=== PATIENT | female | born 1965 | race Caucasian/White ===

== ENCOUNTER → 2017-06-03 10:20 | Outpatient (CLI) | payer OTHER, SELFPAY ==
[2017-06-03 11:53] LABS: Alanine Aminotransferase 36 U/L (12-78); Albumin Level 3.6 gm/dL (3.4-5.0); Albumin/Globulin Ratio 1.3 (1.1-1.8); Alkaline Phosphatase 91 U/L (46-116); Anion Gap 13.5 mEq/L (5-15); Aspartate Amino Transferase 16 U/L (15-37); Bilirubin,Total 0.2 mg/dL (0.2-1.0); Blood Urea Nitrogen 9 mg/dL (7-18); Calcium 8.3 mg/dL (8.5-10.1); Carbon Dioxide 24 mmol/L (21.0-32.0); Chloride 105 mmol/L (98-107); Creatinine,Serum 0.67 mg/dL (0.55-1.02); Estimated Glomerular Filt Rate 94 ml/min (>60); GFR (African American) 113 ML/MIN (>60); Globulin 2.8 gm/dl (1.3-3.2); Glucose 106 mg/dL (74-106); Potassium 4.5 mmoL/L (3.5-5.1); Sodium 138 mmol/L (136-145); Thyroid Stimulating Hormone 1.83 uIU/ml (0.358-3.740); Total Protein,Serum 6.4 gm/dL (6.4-8.2)
[2017-06-04 19:08] LABS: Vitamin D 25 Hydroxy 37.6 ng/mL (30.0-100.0)
== END ==
PROVIDERS: PCP Nurse Practitioner Family; Visit Provider Nurse Practitioner Family
DX: E03.9 Hypothyroidism, unspecified (principal); E55.9 Vitamin D deficiency, unspecified
CPT/HCPCS: 36415; 80053; 82652; 84443

== ENCOUNTER → 2017-10-28 11:04 | Outpatient (CLI) | payer OTHER, SELFPAY ==
[2017-10-28 11:57] LABS: Hemoglobin A1C 5.6 % (0.0-7.0)
[2017-10-28 12:19] LABS: Basophils # 0.1 K/mm3 (0-0.2); Basophils % 0.8 % (0.1-2.0); Eosinophils # 0.2 K/mm3 (0.0-0.4); Eosinophils % 2.7 % (0.1-12.0); Hematocrit 48.8 % (37.0-47.0); Hemoglobin 15.4 g/dL (12.2-16.2); Lymphocytes # 2.4 K/mm3 (0.7-4.5); Lymphocytes % 31.9 K/mm3 (10-50); Mean Corpuscular HGB Conc 31.5 g/dL (31.8-35.4); Mean Corpuscular Hemoglobin 30.8 pg (27.0-31.2); Mean Corpuscular Volume 97.5 fl (81-99); Mean Platelet Volume 8.1 fl (7.4-10.4); Monocytes # 0.4 K/mm3 (0.1-1.0); Monocytes % 5.8 % (1.7-9.3); Neutrophils # 4.4 K/mm3 (1.8-7.8); Neutrophils % 58.8 % (37.0-80.0); Platelet Count 305 K/mm3 (142-424); White Blood Count 7.5 K/mm3 (4.8-10.8)
[2017-10-28 12:49] LABS: Alanine Aminotransferase 21 U/L (12-78); Albumin Level 3.5 gm/dL (3.4-5.0); Albumin/Globulin Ratio 1.2 (1.1-1.8); Alkaline Phosphatase 92 U/L (46-116); Anion Gap 10.5 mEq/L (5-15); Aspartate Amino Transferase 18 U/L (15-37); Bilirubin,Total 0.3 mg/dL (0.2-1.0); Blood Urea Nitrogen 10 mg/dL (7-18); Calcium 8.5 mg/dL (8.5-10.1); Carbon Dioxide 27 mmol/L (21.0-32.0); Chloride 110 mmol/L (98-107); Chol/HDL Ratio 2.8 (1-3.5); Cholesterol 213 mg/dL (140-200); Creatinine,Serum 0.72 mg/dL (0.55-1.02); Estimated Glomerular Filt Rate 86 ml/min (>60); GFR (African American) 104 ML/MIN (>60); Glucose 109 mg/dL (74-106); HDL Cholesterol 76 mg/dL (29-89); LDL Cholesterol 127 mg/dL (0-130); Potassium 4.5 mmoL/L (3.5-5.1); Sodium 143 mmol/L (136-145); Thyroid Stimulating Hormone 0.17 uIU/ml (0.358-3.740); Total Protein,Serum 6.5 gm/dL (6.4-8.2); Triglycerides 51 mg/dL (30-200); VLDL Cholesterol 10 mg/dL (0-40)
[2017-10-30 01:10] LABS: Vitamin D 25 Hydroxy 48.6 ng/mL (30.0-100.0)
== END ==
PROVIDERS: Visit Provider Nurse Practitioner Family
DX: R07.9 Chest pain, unspecified (principal); R06.09 Other forms of dyspnea; R60.9 Edema, unspecified; R94.31 Abnormal electrocardiogram [ECG] [EKG]; R00.2 Palpitations; I49.1 Atrial premature depolarization; F17.200 Nicotine dependence, unspecified, uncomplicated; Z82.49 Family history of ischemic heart disease and other diseases of the circulatory system
CPT/HCPCS: 36415; 80053; 80061; 82652; 83036; 84443; 85025

== ENCOUNTER → 2017-11-03 06:42 | Outpatient (CLI) | payer OTHER, SELFPAY ==
--- NOTE | 2017-11-03 06:44 | CA_ITS ---
PROCEDURE: 2-D M-mode and color Doppler study INDICATIONS FOR THE TEST: Chest pain X COPDX Heart Murmur Tobacco SmokingX Palpitations Fatigue Syncope EdemaX Hypertension Diabetes Mellitus Rheumatic Fever SOBXDOE Obesity Hyperlipidemia Family History HD Additional History ABN EKG,PACS PATIENT INFORMATION HEIGHT: 63 WEIGHT:173 GENDER: Female B/P:135/79 2-D/M-MODE INTERPRETATION: 2-D MEASUREMENTS OBSERVED VALUES IN CMS Right Ventricular Dimension (RVDd) 2.1 Interventricular Septum (Thickness)(IVsd) .9 Left Ventricular Internal Dimensions(LVIDd) 4.6 Left Ventricular Posterior Wall (Thickness)(LVPWd) 1.0 Aortic Root 2.5 Aortic Cusp Separation 1.6 Left Atrial Dimensions (LAD) 3.0 2D 1. Left atrium is normal size, left ventricle is normal size, there is no concentric left ventricular hypertrophy, visually estimated ejection fraction 55% with no obvious regional wall motion abnormality. 2. The right atrium and right ventricle are normal size and contractility. 3. The aortic, mitral and tricuspid valvular grossly normal. 4. The pulmonic valve is poorly visualized. 5. No significant pericardial effusion noted. DOPPLER INTERROGATION: Doppler interrogation of the aortic, mitral and tricuspid valvular presence of mild mitral and tricuspid regurgitation, tricuspid and enteric velocity insufficient for calculation of the right ventricular systolic pressure, diastolic parameters are within normal range. CONCLUSION: 1. Normal left ventricular size, preserved left ventricular systolic function, visually estimated ejection fraction 55% with no obvious regional wall motion abnormality, diastolic parameters are within normal range. 2. Mild mitral and tricuspid regurgitation 3. No significant pericardial effusion noted.
--- NOTE | 2017-11-03 06:44 | CT_ITS ---
CT chest wo con HISTORY: Chest pain and arm numbness. ITS.REASON: chest pain, dyspnea ORDERING PHYSICIAN: Pradeep Jorgensen MD PATIENT AGE: 52 years COMPARISON: Technique: Axial images obtained. Sagittal and coronal reformatted images are also generated and reviewed. All CT scans at the facility use one or more dose reduction, viz: automated exposure control; ma/kV adjustment per patient size (including targeted exams where dose is matched to indication; i.e. head); or iterative reconstruction technique. FINDINGS: The lungs are well expanded and clear with no active disease. No focal pneumonia. No mass or significant lung lesion. There is a benign calcified granulomata right lower lobe posteriorly axial image 45. Some associated minimal linear scarring. Associated calcified right hilar nodes reflecting old granulomas disease as well. . Airways appear upper normal thickness. Mediastinum. No significant mediastinal mass or adenopathy. Hilar regions with benign calcified right hilar nodes observed. The heart is normal in size. No pericardial effusion. Uppermost abdomen. A generous fluid filled duodenum extends just anterior to the hilum of right kidney. This is seen in 2017. Similar appearance. Upper T-spine with some slight anterior offset of C3 on C4 unchanged 2017. Likely reflect some mild degenerative facet and disc changes. Along with the scoliosis patient with dextroscoliosis mid to lower T-spine and slight levocurvature above this. No significant lesions in the spine.. LUNGS: Unremarkable. No mass or consolidation. Small hiatal hernia less evident this year CT Regarding left arm pain survey of the brachial plexus region shows no obvious mass or lesion nor adenopathy. There are some scattered moderate-sized nodes at the left axilla largest measuring 15 mm in size and nonspecific most likely benign appearance., & Fairly stable since last year. IMPRESSION Lungs clear No active disease in the chest. No significant new findings.. No lung nodule/mass concern. No adenopathy Only Old granulomatous disease right chest . Mild/moderate Scoliosis.Again noted
--- NOTE | 2017-11-03 06:44 | NM_ITS ---
History and Indications: Tobacco use, family history, chest pain, shortness of breath, palpitations fatigue and abnormal EKG Procedure: Patient exercised on Philippe protocol 9 minutes, resting heart rate was 87 bpm, resting blood pressure 126/62, with exercise maximum heart rate achieved was 1 60 bpm which is equal to 94% of the maximum predicted heart rate and a blood pressure was 176/74. Test was started due to shortness of breath patient denied complained of chest pain. Patient has good exercise capacity achieved 10.1mets of workload on treadmill, the blood pressure response to exercise was adequate. Electrocardiogram: Resting electrocardiogram showed sinus rhythm premature atrial complexes, with exercise there is less than 1.[address] segment depression noted from the baseline EKG. The EKG portion of the exercise Myoview is negative for ischemia. Cardiac stress and resting SPECT images: Cardiac stress and rest SPECT images were obtained using technetium 99 Myoview 32.5 mCi at stress and 9.7 mCi at rest. Gated SPECT further analysis of segmental wall motion and calculation of the ejection fraction also done. Cardiac stress and rest images show a mild fixed defect in the anterior wall with normal contractility in the gated SPECT is likely secondary to soft tissue attenuation, no reversible ischemia seen. Computer derived ejection fraction is 52% with no obvious regional wall motion abnormality, right ventricle is normal size and contractility. Conclusion: 1. The EKG portion of the exercise Myoview is negative for ischemia, patient has good exercise capacity achieved 10.1mets of workload on treadmill, the blood pressure response to exercise was adequate, there was no exercise-induced chest discomfort, test was stopped due to shortness of breath. 2. No obvious scintigraphic evidence of reversible ischemia seen, computer derived ejection fraction is 52% with no obvious regional wall motion abnormality, right ventricle is normal size and contractility. 3. Normal exercise Myoview study.
--- NOTE | 2017-11-03 09:37 | HMH.ITSHM ---
synthyroid adderall flonase
== END ==
PROVIDERS: Family Provider Nurse Practitioner Family; PCP Nurse Practitioner Family; Visit Provider Internal Medicine Cardiovascular Disease
DX: R07.9 Chest pain, unspecified (principal); R06.09 Other forms of dyspnea; R94.31 Abnormal electrocardiogram [ECG] [EKG]
CPT/HCPCS: 71250; 78452; 93017; 93306; A9502

== ENCOUNTER → 2017-11-08 16:25 | Outpatient (CLI) | payer OTHER, SELFPAY ==
--- NOTE | 2017-11-08 16:28 | MM_ITS ---
MM Dig screening mamm BI w/CAD CAD Screening COMPARISON: Digital mammograms with CAD 04/14/2016 and additional views left breast 04/27/2016 and 6 month follow-up left mammogram 10/05/2016 INDICATION: There is a history of breast cancer patient's aunt diagnosed after menopause TECHNIQUE: Standard CC and MLO images were obtained. R2 CAD reviewed. FINDINGS: Mild to moderate scattered fibroglandular densities are seen in both breasts. The possible asymmetric density left breast seen originally is not seen on today's study. There is no suspicious lesion and there are no suspicious microcalcifications. IMPRESSION: Moderate breast density with no suspicious lesion seen BI-RADS Category: 1 Negative RECOMMENDED FOLLOW-UP: 1YR - 1 YEAR FOLLOW-UP (A letter has been sent to the patient regarding results of the study.)
== END ==
PROVIDERS: Family Provider Nurse Practitioner Family; PCP Nurse Practitioner Family; Visit Provider Nurse Practitioner Family
DX: Z12.31 Encounter for screening mammogram for malignant neoplasm of breast (principal)
CPT/HCPCS: 77067

== ENCOUNTER → 2017-11-18 12:22 | Outpatient (CLI) | payer OTHER, SELFPAY ==
--- NOTE | 2017-11-18 12:26 | XR_ITS ---
XR foot RT min 3V HISTORY: Right foot pain ITS.REASON: BILAT FOOT PAIN ORDERING PHYSICIAN: Kasey Goncalves PATIENT AGE: 52 years COMPARISON: None FINDINGS: No fracture or dislocation. No lytic or blastic change. There is normal mineralization.. The joint spaces are well-preserved. No significant degenerative/arthritic changes. No erosive changes evident. IMPRESSION: Negative, no acute finding
--- NOTE | 2017-11-18 12:26 | XR_ITS ---
XR foot LT min 3V HISTORY: Left foot pain ITS.REASON: BILAT FOOT PAIN ORDERING PHYSICIAN: Kasey Goncalves PATIENT AGE: 52 years COMPARISON: None FINDINGS: No fracture or dislocation. No lytic or blastic change. There is normal mineralization.. The joint spaces are well-preserved. No significant degenerative/arthritic changes. No erosive changes evident. Small bone island noted in the anterior talus IMPRESSION: Negative, no acute finding
== END ==
PROVIDERS: Visit Provider Nurse Practitioner Family
DX: M79.671 Pain in right foot (principal); M79.672 Pain in left foot
CPT/HCPCS: 73630

== ENCOUNTER → 2018-07-24 10:31 | Outpatient (CLI) | payer OTHER, SELFPAY ==
[2018-07-24 11:17] LABS: Basophils # 0.1 K/mm3 (0-0.2); Basophils % 0.8 % (0.1-2.0); Eosinophils # 0.2 K/mm3 (0.0-0.4); Eosinophils % 2.4 % (0.1-12.0); Hematocrit 42.6 % (37.0-47.0); Hemoglobin 14.7 g/dL (12.2-16.2); Lymphocytes # 2.9 K/mm3 (0.7-4.5); Lymphocytes % 36.7 % (10-50); Mean Corpuscular HGB Conc 34.4 g/dL (31.8-35.4); Mean Corpuscular Hemoglobin 31.7 pg (27.0-31.2); Mean Corpuscular Volume 92.2 fl (81-99); Mean Platelet Volume 7.7 fl (7.4-10.4); Monocytes # 0.4 K/mm3 (0.1-1.0); Monocytes % 4.5 % (1.7-9.3); Neutrophils # 4.4 K/mm3 (1.8-7.8); Neutrophils % 55.7 % (37.0-80.0); Platelet Count 275 K/mm3 (142-424); Red Blood Count 4.62 M/mm3 (4.20-5.40); Red Cell Distribution Width 12.2 % (11.5-17.5); White Blood Count 7.8 K/mm3 (4.8-10.8)
[2018-07-24 12:08] LABS: Alanine Aminotransferase 22 U/L (12-78); Albumin Level 3.6 gm/dL (3.4-5.0); Albumin/Globulin Ratio 1.2 (1.1-1.8); Alkaline Phosphatase 98 U/L (46-116); Anion Gap 17.2 mEq/L (5-15); Aspartate Amino Transferase 14 U/L (15-37); Bilirubin,Total 0.4 mg/dL (0.2-1.0); Blood Urea Nitrogen 13 mg/dL (7-18); Calcium 8.7 mg/dL (8.5-10.1); Carbon Dioxide 24 mmol/L (21.0-32.0); Chloride 103 mmol/L (98-107); Chol/HDL Ratio 3.8 (1-3.5); Cholesterol 263 mg/dL (140-200); Creatinine,Serum 0.76 mg/dL (0.55-1.02); Estimated Glomerular Filt Rate 81 ml/min (>60); Free Thyroxine Index 3.5 ug/dL (5.93-13.13); GFR (African American) 97 ML/MIN (>60); Globulin 3.1 gm/dl (1.3-3.2); Glucose 114 mg/dL (74-106); HDL Cholesterol 70 mg/dL (29-89); LDL Cholesterol 174 mg/dL (0-130); Potassium 4.2 mmoL/L (3.5-5.1); Sodium 140 mmol/L (136-145); T4 (Thyroxine) 10.6 ug/dl (4.7-13.3); Thyroid Stimulating Hormone 0.86 uIU/ml (0.358-3.740); Total Protein,Serum 6.7 gm/dL (6.4-8.2); Triglycerides 93 mg/dL (30-200); Triiodothryronine (T3) Uptake 33 % (31-39); VLDL Cholesterol 19 mg/dL (0-40)
[2018-07-24 12:13] LABS: Hemoglobin A1C 6.1 % (0.0-7.0)
[2018-07-26 14:26] LABS: Vitamin B12 510 pg/mL (232-1245)
[2018-07-26 14:27] LABS: Estradiol 89.9 pg/mL (.); FSH 32.3 mIU/mL (.); LH 18.2 mIU/mL (.); Thyroid Peroxidase Antibodies 16 IU/mL (0-34); Vitamin D 25 Hydroxy 20.2 ng/mL (30.0-100.0)
== END ==
PROVIDERS: Visit Provider Nurse Practitioner Family
DX: R73.9 Hyperglycemia, unspecified (principal); R53.82 Chronic fatigue, unspecified; E55.9 Vitamin D deficiency, unspecified; N91.2 Amenorrhea, unspecified; E03.9 Hypothyroidism, unspecified
CPT/HCPCS: 36415; 80053; 80061; 82607; 82652; 82670; 83001; 83002; 83036; 84436; 84443; 84479; 85025; 86376

== ENCOUNTER → 2018-11-08 11:59 | Outpatient (CLI) | payer OTHER, SELFPAY ==
[2018-11-08 14:11] LABS: Alanine Aminotransferase 21 U/L (12-78); Albumin Level 3.4 gm/dL (3.4-5.0); Albumin/Globulin Ratio 1.1 (1.1-1.8); Alkaline Phosphatase 82 U/L (46-116); Anion Gap 12.7 mEq/L (5-15); Aspartate Amino Transferase 9 U/L (15-37); Bilirubin,Total 0.3 mg/dL (0.2-1.0); Blood Urea Nitrogen 9 mg/dL (7-18); Calcium 9.1 mg/dL (8.5-10.1); Carbon Dioxide 27 mmol/L (21.0-32.0); Chloride 103 mmol/L (98-107); Cholesterol 234 mg/dL (140-200); Creatinine,Serum 0.68 mg/dL (0.55-1.02); Estimated Glomerular Filt Rate 91 ml/min (>60); GFR (African American) 110 ML/MIN (>60); Glucose 100 mg/dL (74-106); HDL Cholesterol 79 mg/dL (29-89); LDL Cholesterol 147 mg/dL (0-130); Potassium 4.7 mmoL/L (3.5-5.1); Sodium 138 mmol/L (136-145); Thyroid Stimulating Hormone 0.55 uIU/ml (0.358-3.740); Total Protein,Serum 6.4 gm/dL (6.4-8.2); Triglycerides 42 mg/dL (30-200); VLDL Cholesterol 8 mg/dL (0-40)
[2018-11-08 15:00] LABS: Hemoglobin A1C 5.6 % (0.0-7.0)
[2018-11-09 08:24] LABS: Vitamin D 25 Hydroxy 31.8 ng/mL (30.0-100.0)
== END ==
PROVIDERS: Visit Provider Nurse Practitioner Family
DX: R73.9 Hyperglycemia, unspecified (principal); E78.2 Mixed hyperlipidemia; E03.9 Hypothyroidism, unspecified; E55.9 Vitamin D deficiency, unspecified
CPT/HCPCS: 36415; 80053; 80061; 82652; 83036; 84443

== ENCOUNTER → 2018-12-29 08:56 | Outpatient (CLI) | payer OTHER, SELFPAY ==
--- NOTE | 2018-12-29 09:02 | MM_ITS ---
PROCEDURE: MM DIG SCREENING MAMM BI W/CAD Patient Age:53Y CLINICAL INDICATION: SCREENING COMPARISON: [facility] DIG MAMM-SCREEN SALLIE from 02/28/2013 [facility] DIG MAMM-SCREEN SALLIE from 10/14/2014 [facility] DIG MAMM-SCREEN SALLIE from 04/14/2016 [facility] DIG MAMM-DX UNI A/VWS-LT W/CAD from 04/27/2016 [facility] DIG MAMM-DX UNI A/VWS-LT W/CAD from 10/07/2016 [facility] MM Dig screening mamm BI w/CAD from 11/08/2017 TECHNIQUE: Standard CC and MLO images were obtained. R2 CAD reviewed. Additional left CC view FINDINGS: [id number] residual fibroglandular elements. No dominant mass. No suspicious calcification. Stable mild asymmetry Right mammogram: Area of asymmetric density superior right breast is similar to previous studies dating back to 2015, 1999 14 no significant new areas of concern. Left breast. Overall adequate stable appearance with no areas significant of concern.. Areas of density towards the lateral breast are similar to studies dating back to 2012, 2013 additional CC nipple profile view included also helpful IMPRESSION: 1.. Stable mammogram with no significant new areas of concern. Bilateral follow-up 1 year is recommended and would be encouraged BI-RAD Category: 2 Benign Finding(s) FOLLOW-UP: 1YR 1 Year Follow-up (A letter has been sent to the patient regarding results of the study.) Dictated by: Osito Lazo MD 01/04/2019 11:38 Electronically signed by Osito Lazo MD in [place] 01/04/2019 11:38
== END ==
PROVIDERS: PCP Internal Medicine Adolescent Medicine; Visit Provider Nurse Practitioner Family
DX: Z12.31 Encounter for screening mammogram for malignant neoplasm of breast (principal)
CPT/HCPCS: 77067

== ENCOUNTER → 2019-04-20 14:45 | Outpatient (CLI) | payer OTHER, SELFPAY ==
[2019-04-20 17:14] LABS: Alanine Aminotransferase 31 U/L (12-78); Albumin Level 3.4 gm/dL (3.4-5.0); Albumin/Globulin Ratio 1.3 (1.1-1.8); Alkaline Phosphatase 101 U/L (46-116); Anion Gap 11.4 mEq/L (5-15); Aspartate Amino Transferase 13 U/L (15-37); Bilirubin,Total 0.3 mg/dL (0.2-1.0); Blood Urea Nitrogen 10 mg/dL (7-18); Calcium 8.7 mg/dL (8.5-10.1); Carbon Dioxide 30 mmol/L (21.0-32.0); Chloride 106 mmol/L (98-107); Chol/HDL Ratio 2.9 (1-3.5); Cholesterol 238 mg/dL (140-200); Creatinine,Serum 0.64 mg/dL (0.55-1.02); Estimated Glomerular Filt Rate 98 ml/min (>60); GFR (African American) 118 ML/MIN (>60); Globulin 2.7 gm/dl (1.3-3.2); Glucose 90 mg/dL (74-106); HDL Cholesterol 82 mg/dL (29-89); LDL Cholesterol 144 mg/dL (0-130); Potassium 4.4 mmoL/L (3.5-5.1); Sodium 143 mmol/L (136-145); Thyroid Stimulating Hormone 0.15 uIU/ml (0.358-3.740); Total Protein,Serum 6.1 gm/dL (6.4-8.2); Triglycerides 61 mg/dL (30-200); VLDL Cholesterol 12 mg/dL (0-40)
== END ==
PROVIDERS: Visit Provider Nurse Practitioner Family
DX: E78.2 Mixed hyperlipidemia (principal); E03.9 Hypothyroidism, unspecified; I10 Essential (primary) hypertension
CPT/HCPCS: 36415; 80053; 80061; 84443

== ENCOUNTER → 2019-08-30 13:28 | Outpatient (CLI) | payer OTHER, SELFPAY ==
[2019-08-30 15:22] LABS: Thyroid Stimulating Hormone 0.02 uIU/mL (0.465-4.68)
== END ==
PROVIDERS: Visit Provider Nurse Practitioner Family
DX: E03.9 Hypothyroidism, unspecified (principal)
CPT/HCPCS: 36415; 84439; 84443

== ENCOUNTER → 2019-12-17 16:13 | Outpatient (CLI) | payer OTHER, SELFPAY ==
[2019-12-17 17:45] LABS: Alanine Aminotransferase 23 U/L (12-78); Albumin Level 4.1 g/dl (3.5-5.0); Albumin/Globulin Ratio 1.6 (1.1-1.8); Alkaline Phosphatase 107 U/L (38-126); Anion Gap 9.6 mEq/L (5-15); Aspartate Amino Transferase 31 U/L (14-36); Bilirubin,Total 0.4 mg/dl (0.2-1.3); Blood Urea Nitrogen 13 mg/dl (7-17); Calcium 9.5 mg/dl (8.4-10.2); Carbon Dioxide 32 mmol/L (22.0-30.0); Chloride 103 mmol/L (98-107); Chol/HDL Ratio 2.9 (1-3.5); Cholesterol 250 mg/dl (140-200); Estimated Glomerular Filt Rate 88 ml/min (>60); GFR (African American) 106 ML/MIN (>60); Globulin 2.6 g/dL (1.3-3.2); Glucose 98 mg/dl (74-100); HDL Cholesterol 85 mg/dl (40-60); Potassium 4.6 mmoL/L (3.5-5.1); Sodium 140 mmol/L (136-145); Total Protein,Serum 6.7 g/dl (6.3-8.2); Triglycerides 64 mg/dl (30-150); VLDL Cholesterol 13 mg/dL (0-40)
[2019-12-17 18:04] LABS: 25-OH Vitamin D, Total 53.1 ng/mL (30-100); Free T4 (Free Thyroxine) 1.21 ng/dl (0.78-2.19)
[2019-12-17 18:18] LABS: Thyroid Stimulating Hormone 2.31 uIU/mL (0.465-4.68)
== END ==
PROVIDERS: Visit Provider Nurse Practitioner Family
DX: E03.9 Hypothyroidism, unspecified (principal); E78.2 Mixed hyperlipidemia; E55.9 Vitamin D deficiency, unspecified
CPT/HCPCS: 36415; 80053; 80061; 82306; 84439; 84443

== ENCOUNTER → 2020-01-15 15:28 | Outpatient (CLI) | payer OTHER, SELFPAY ==
--- NOTE | 2020-01-15 15:32 | MM_ITS ---
PROCEDURE: MM DIG SCREENING MAMM BI W/CAD Digital Breast Tomosynthesis Included CLINICAL INDICATION: SCREENING There is a history of breast cancer in the patient's maternal aunt diagnosed after menopause. COMPARISON: MG [facility] DIG MAMM-DX UNI A/VWS-LT W/CAD from 10/07/2016 MG [facility] MM Dig screening mamm BI w/CAD from 11/08/2017 MG MM DIG SCREENING MAMM BI W/CAD from 12/29/2018 TECHNIQUE: Standard CC and MLO images and 3D Tomosynthesis was obtained. R2 CAD reviewed. FINDINGS: Moderate somewhat heterogenic fibroglandular densities are seen in the central portions of both breasts. There is stable asymmetric glandular elements upper-outer quadrant right breast. There is no new or suspicious lesion in either breast and no suspicious microcalcifications. IMPRESSION: Fibrofatty parenchyma with no suspicious lesions seen BI-RAD Category: 1 Negative FOLLOW-UP: 1YR 1 Year Follow-up (A letter has been sent to the patient regarding results of the study.) Dictated by: Dr. Tremayne Burkett MD 01/21/2020 08:54 Dr. Tremayne Burkett MD in [place] 01/21/2020 08:54
== END ==
PROVIDERS: PCP Nurse Practitioner Family; Visit Provider Nurse Practitioner Family
DX: Z12.31 Encounter for screening mammogram for malignant neoplasm of breast (principal)
CPT/HCPCS: 77063; 77067

== ENCOUNTER 2020-03-17 16:49 | Emergency (ER) | payer OTHER, SELFPAY ==
[2020-03-17 17:05] VITALS: BP 155/80; PULSE 85; RESP 14; TEMP 37.1; O2SAT 97; BMI 28.3
--- NOTE | 2020-03-17 17:45 | HMH.EDUTC ---
[facility] [place] Clinical Impression: Exposure to COVID-19 virus Sinusitis Qualifiers: Sinusitis location: unspecified location Chronicity: acute Recurrence: non-recurrent Qualified Code(s): J01.90 - Acute sinusitis, unspecified Disposition: Home, Self-Care Condition on Discharge: Good Instructions: DI for Sinusitis, Preventing the Spread of Coronavirus Discharge Instructions Additional Instructions: Drink plenty of fluids. Take tylenol or ibuprofen for pain or fever. Take the medications as directed. Follow up with your regular doctor. GO TO THE ER FOR ANY WORSENING SYMPTOMS Prescriptions: Benzonatate [Tessalon Perle 100mg Cap] 100 mg PO TIDP PRN #30 cap PRN Reason: Cough Transmission Status: Received by [facility] Azithromycin [Z-Ludin 250mg Tab*] 250 mg PO UD DOSE PK #6 tab Transmission Status: Re[facility] by [facility] Referrals: Kasey Goncalves APRN [Primary Care Provider] - Time of Disposition: 18:06 Medical Decision Making - Medical Records Medical records reviewed: No: I reviewed the patient's medical records. - Blayne Inquiry Pt receiving controlled substance: No Vital Signs: 03/17/20 17:05 03/17/20 18:24 Temperature 98.7 F 98.7 F Temperature Source Oral Pulse Rate 85 Pulse Rate [Right Brachial] 85 Respiratory Rate 14 14 Blood Pressure 155/80 H Blood Pressure [Left Arm] 155/80 H Blood Pressure Mean [Left Arm] 105 Blood Pressure Source [Left Arm] Automatic Cuff Blood Pressure Position [Left Arm] Sitting 02 Sat by Pulse Oximetry 97 Oxygen Delivery Method Room Air Orders (Tests/Meds): ORDERS Category Date Time Status Covid-19 Nasal PCR Sendout Isaias Routine Lab 03/17/20 17:00 Received [facility] [place] - General Stated complaint: covid exposure Time Seen by Provider: 03/17/20 17:45 Mode of Arrival: Ambulatory Source of Information: Spouse Limitations: No Limitations Description of Symptoms (Recalled from Triage Doc. by RN): PATIENT REQUESTING COVID TEST D/T EXPOSURE; C/O HEADACHE, NASAL DRAINAGE. HAD FLU SHOT LAST WEEK HEENT Symptoms (Recalled from RN notes): Yes Resp Symptoms (Recalled from RN notes): No Skin Symptoms (Recalled from RN notes): No MS Symptoms (Recalled from RN notes): No Functional Status (Recalled from RN notes): WNL - History of Present Illness Provider Complaint: She states that her has covid-19. She has been trying to isolate herself away from him. Since yesterday she has had a scratchy throat, cough, nasal drainage. - Related Data Home Medications Medication Instructions Recorded Confirmed Dextroamphetamine/Amphetamine 20 mg PO DAILY 10/27/17 03/23/19 [Adderall 20 mg Tablet] Multivitamin [Multivitamins] 1 each PO DAILY 10/27/17 03/23/19 fluticasone propionate 50 1 spray INTRANASAL DAILY g 10/28/17 03/23/19 mcg/actuation nasal spray,suspension Omeprazole [Omeprazole 40mg 40 mg PO DAILY 08/29/18 03/23/19 Capsule] Cholecalciferol (Vitamin D3) 2,000 unit PO DAILY 08/30/18 03/23/19 [Vitamin D3] ascorbic acid (vitamin C) 500 mg 1,000 mg PO DAILY cap 09/15/18 03/23/19 capsule aspirin 81 mg tablet,delayed 81 mg PO DAILY 09/15/18 03/23/19 release levothyroxine 150 mcg tablet 137 mcg PO DAILY tab 09/15/18 03/23/19 loratadine 10 mg tablet 10 mg PO DAILY 09/15/18 03/23/19 Previous Rx's Medication Instructions Recorded metoprolol succinate 25 mg 25 mg PO DAILY #30 tab 01/01/19 tablet,extended release 24 hr Azithromycin [Z-Ludin 250mg Tab*] 250 mg PO UD DOSE PK #6 tab 03/17/20 Benzonatate [Tessalon Perle 100mg 100 mg PO TIDP PRN #30 cap 03/17/20 Cap] Allergies Allergy/AdvReac Type Severity Reaction Status Date / Time No Known Drug Allergies Allergy Unknown Verified 03/23/19 09:58 [NKDA] - Worker's Comp Is this a Worker's Comp case?: No H History - Hepatitis A Screen Drug use history?: No High risk sexual behaviors?: No History of sexually transmitted
[2020-03-17 18:24] VITALS: BP 155/80; PULSE 85; RESP 14; TEMP 37.1; O2SAT 97
[2020-03-19 15:39] LABS: Covid-19 Nasal PCR Sendout Lex Not Detected
== END 2020-03-17 18:25 | disposition home or self-care (01) ==
PROVIDERS: Emergency Provider Nurse Practitioner Family; PCP Nurse Practitioner Family
DX: Z20.828 Contact with and (suspected) exposure to other viral communicable diseases (principal); J01.90 Acute sinusitis, unspecified; K21.9 Gastro-esophageal reflux disease without esophagitis; I10 Essential (primary) hypertension; E03.9 Hypothyroidism, unspecified; F17.210 Nicotine dependence, cigarettes, uncomplicated; Z79.899 Other long term (current) drug therapy
CPT/HCPCS: 99201; U0004

== ENCOUNTER → 2020-03-25 12:08 | Outpatient (CLI) | payer OTHER, SELFPAY ==
[2020-03-25 12:45] LABS: Basophils # 0.1 K/mm3 (0-0.2); Basophils % 1.3 % (0.1-2.0); Eosinophils # 0.3 K/mm3 (0.0-0.4); Hematocrit 47.5 % (37.0-47.0); Hemoglobin 15.8 g/dL (12.2-16.2); Lymphocytes # 3.2 K/mm3 (0.7-4.5); Lymphocytes % 36.1 % (10-50); Mean Corpuscular HGB Conc 33.2 g/dL (31.8-35.4); Mean Corpuscular Hemoglobin 32.8 pg (27.0-31.2); Mean Corpuscular Volume 98.8 fl (81-99); Mean Platelet Volume 8.2 fl (7.4-10.4); Monocytes # 0.5 K/mm3 (0.1-1.0); Neutrophils # 4.7 K/mm3 (1.8-7.8); Neutrophils % 53.7 % (37.0-80.0); Platelet Count 321 K/mm3 (142-424); Red Blood Count 4.81 M/mm3 (4.20-5.40); Red Cell Distribution Width 12.6 % (11.5-17.5); White Blood Count 8.8 K/mm3 (4.8-10.8)
[2020-03-25 12:52] LABS: Chloride 103 mmol/L (98-107)
[2020-03-25 12:53] LABS: Sodium 136 mmol/L (136-145)
[2020-03-25 12:55] LABS: Alanine Aminotransferase 24 U/L (12-78); Aspartate Amino Transferase 35 U/L (14-36); Blood Urea Nitrogen 9 mg/dl (7-17); Estimated Glomerular Filt Rate 66 ml/min (>60); GFR (African American) 80 ML/MIN (>60)
[2020-03-25 12:56] LABS: Albumin Level 4.3 g/dl (3.5-5.0); Albumin/Globulin Ratio 1.5 (1.1-1.8); Alkaline Phosphatase 116 U/L (38-126); Bilirubin,Total 0.4 mg/dl (0.2-1.3); Calcium 9.4 mg/dl (8.4-10.2); Carbon Dioxide 28 mmol/L (22.0-30.0); Globulin 2.9 g/dL (1.3-3.2); Glucose 108 mg/dl (74-100); Total Protein,Serum 7.2 g/dl (6.3-8.2)
[2020-03-25 13:30] LABS: Thyroid Stimulating Hormone 1.28 uIU/mL (0.465-4.68)
[2020-03-25 13:56] LABS: Coronavirus 19 IgG Antibody Negative (Negative); Coronavirus 19 IgM Antibody Negative (Negative)
== END ==
PROVIDERS: Visit Provider Nurse Practitioner Family
DX: Z03.818 Encounter for observation for suspected exposure to other biological agents ruled out (principal); E03.9 Hypothyroidism, unspecified
CPT/HCPCS: 36415; 80053; 84439; 84443; 85025; 86328

== ENCOUNTER → 2020-04-03 10:31 | Outpatient (CLI) | payer OTHER, SELFPAY ==
--- NOTE | 2020-04-03 10:35 | CT_ITS ---
PROCEDURE: CT ANGIO CHEST CLINCIAL INDICATION: dyspnea RIGHT LOWER CHEST PAIN, RIGHT ANT RIB AREA, TENDER TO TOUCH SOA COMPARISON: CT CHESTWO CT chest wo con from 11/03/2017 TECHNIQUE: IV Contrast: 70ML Isovue 370 Axial images obtained with sagittal and coronal reformats. All CT scans at the facility use one or more dose reduction, viz: automated exposure control, ma/kV adjustment per patient size (including targeted exams where dose is matched to indication, i.e. head), or iterative reconstruction technique. FINDINGS: HEART AND MEDIASTINAL STRUCTURES: No evidence of aortic aneurysm or dissection. No evidence of pulmonary embolus. LUNGS AND PLEURAL SPACES: There is a stable 4 mm nodule in the right middle lobe. Stable 3 mm nodule right lower lobe. Calcified granulomas are present. No suspicious nodules are evident. BONY STRUCTURES: Mild thoracic scoliosis convex right UPPER ABDOMEN: Unremarkable. ADDITIONAL FINDINGS: No other significant abnormalities. IMPRESSION: 1. No acute finding. No evidence of pulmonary embolus or aortic aneurysm or dissection. 2. Overall stable CT appearance of the chest compared to 11/03/2017 Dictated by: Hamlet Crespo MD 04/04/2020 12:08 Hamlet Crespo MD in [place] 04/04/2020 12:08
== END ==
PROVIDERS: PCP Nurse Practitioner Family; Visit Provider Internal Medicine Cardiovascular Disease
DX: Z20.828 Contact with and (suspected) exposure to other viral communicable diseases (principal); R06.00 Dyspnea, unspecified; I10 Essential (primary) hypertension; J01.90 Acute sinusitis, unspecified; Z72.0 Tobacco use
CPT/HCPCS: 71275; Q9967

== ENCOUNTER → 2020-08-11 13:48 | Outpatient (CLI) | payer OTHER, SELFPAY ==
[2020-08-11 14:51] LABS: Alanine Aminotransferase 24 U/L (12-78); Albumin Level 4.1 g/dl (3.5-5.0); Albumin/Globulin Ratio 1.9 (1.1-1.8); Alkaline Phosphatase 102 U/L (38-126); Anion Gap 8.1 mEq/L (5-15); Aspartate Amino Transferase 29 U/L (14-36); Bilirubin,Total 0.3 mg/dl (0.2-1.3); Blood Urea Nitrogen 11 mg/dl (7-17); Calcium 9.3 mg/dl (8.4-10.2); Carbon Dioxide 30 mmol/L (22.0-30.0); Chloride 105 mmol/L (98-107); Chol/HDL Ratio 3.5 (1-3.5); Cholesterol 239 mg/dl (140-200); Estimated Glomerular Filt Rate 75 ml/min (>60); GFR (African American) 91 ML/MIN (>60); Globulin 2.2 g/dL (1.3-3.2); Glucose 109 mg/dl (74-100); HDL Cholesterol 68 mg/dl (40-60); Potassium 5.1 mmoL/L (3.5-5.1); Sodium 138 mmol/L (136-145); Total Protein,Serum 6.3 g/dl (6.3-8.2); Triglycerides 91 mg/dl (30-150); VLDL Cholesterol 18 mg/dL (0-40)
[2020-08-11 15:03] LABS: Direct LDL Cholesterol 127.62 mg/dL (100-129)
[2020-08-11 15:08] LABS: 25-OH Vitamin D, Total 38.3 ng/mL (30-100)
[2020-08-11 15:22] LABS: Thyroid Stimulating Hormone 1.08 uIU/mL (0.465-4.68)
== END ==
PROVIDERS: Visit Provider Nurse Practitioner Family
DX: E03.9 Hypothyroidism, unspecified (principal); E78.2 Mixed hyperlipidemia; E55.9 Vitamin D deficiency, unspecified
CPT/HCPCS: 36415; 80053; 80061; 82306; 84439; 84443

== ENCOUNTER → 2020-12-01 13:54 | Outpatient (CLI) | payer OTHER, SELFPAY ==
[2020-12-01 14:32] LABS: Hemoglobin A1C 5.6 % (4.0-6.0)
[2020-12-01 16:11] LABS: Alanine Aminotransferase 17 U/L (12-78); Albumin Level 4.2 g/dl (3.5-5.0); Albumin/Globulin Ratio 1.6 (1.1-1.8); Alkaline Phosphatase 103 U/L (38-126); Anion Gap 11.2 mEq/L (5-15); Aspartate Amino Transferase 28 U/L (14-36); Bilirubin,Total 0.4 mg/dl (0.2-1.3); Blood Urea Nitrogen 9 mg/dl (7-17); Calcium 9.4 mg/dl (8.4-10.2); Carbon Dioxide 29 mmol/L (22.0-30.0); Chloride 101 mmol/L (98-107); Estimated Glomerular Filt Rate 88 ml/min (>60); GFR (African American) 106 ML/MIN (>60); Globulin 2.6 g/dL (1.3-3.2); Glucose 96 mg/dl (74-100); Potassium 5.2 mmoL/L (3.5-5.1); Sodium 136 mmol/L (136-145); Total Protein,Serum 6.8 g/dl (6.3-8.2)
[2020-12-01 16:42] LABS: Thyroid Stimulating Hormone 0.15 uIU/mL (0.465-4.68)
== END ==
PROVIDERS: Visit Provider Nurse Practitioner Family
DX: E03.9 Hypothyroidism, unspecified (principal); R73.9 Hyperglycemia, unspecified
CPT/HCPCS: 36415; 80053; 83036; 84443

== ENCOUNTER → 2021-03-09 13:18 | Outpatient (CLI) | payer OTHER, SELFPAY ==
[2021-03-09 16:33] LABS: Chloride 106 mmol/L (98-107); Potassium 4.2 mmoL/L (3.5-5.1); Sodium 139 mmol/L (136-145)
[2021-03-09 16:35] LABS: Alanine Aminotransferase 22 U/L (12-78); Aspartate Amino Transferase 32 U/L (14-36); Blood Urea Nitrogen 4 mg/dl (7-17); Estimated Glomerular Filt Rate 88 ml/min (>60); GFR (African American) 106 ML/MIN (>60)
[2021-03-09 16:36] LABS: Albumin Level 3.9 g/dl (3.5-5.0); Albumin/Globulin Ratio 1.6 (1.1-1.8); Alkaline Phosphatase 98 U/L (38-126); Anion Gap 7.2 mEq/L (5-15); Bilirubin,Total 0.2 mg/dl (0.2-1.3); Calcium 9.2 mg/dl (8.4-10.2); Carbon Dioxide 30 mmol/L (22.0-30.0); Cholesterol 218 mg/dl (140-200); Globulin 2.4 g/dL (1.3-3.2); Glucose 103 mg/dl (74-100); Total Protein,Serum 6.3 g/dl (6.3-8.2); Triglycerides 100 mg/dl (30-150); VLDL Cholesterol 20 mg/dL (0-40)
[2021-03-09 16:37] LABS: HDL Cholesterol 73 mg/dl (40-60)
[2021-03-09 16:49] LABS: Direct LDL Cholesterol 115.49 mg/dL (100-129)
[2021-03-09 16:53] LABS: Free T4 (Free Thyroxine) 1.41 ng/dl (0.78-2.19)
[2021-03-09 17:08] LABS: Thyroid Stimulating Hormone 2.89 uIU/mL (0.465-4.68)
== END ==
PROVIDERS: Visit Provider Nurse Practitioner Family
DX: I10 Essential (primary) hypertension (principal); E03.9 Hypothyroidism, unspecified; E78.2 Mixed hyperlipidemia
CPT/HCPCS: 36415; 80053; 80061; 84439; 84443

== ENCOUNTER → 2021-07-08 15:18 | Outpatient (CLI) | payer OTHER, SELFPAY ==
--- NOTE | 2021-07-08 15:21 | CT_ITS ---
FINAL REPORT CLINICAL HISTORY: PERSONAL HX OF TOBACCO USE COMPARISON: April 03, 2020 FINDINGS: Low-Dose Chest CT CTDI vol (mGy): 2.90 DLP (mGy-cm): 112.81 Axial images were obtained from the lung apex to the mid abdomen by computed tomography. Low-dose protocol was utilized. FINDINGS: CHEST: There is no axillary adenopathy. There is no mediastinal adenopathy. There is a small right hilar lymph nodes. The heart is proper size. There is no pericardial or pleural effusion. Limited images of the upper abdomen are unremarkable. Lung window images demonstrate a calcified granuloma in the right lower lobe. There is a small nodule in the right middle lobe which is stable or slightly less evident than on the previous exam. The pleural based densities noted in the right lower lobe which is less well seen on today's exam. There is a stable small nodules in the periphery of the right lower lobe seen on image 59 series 4. IMPRESSION: Stable small nodules bilaterally. Lung RADS category 2. Recommend 12 month follow-up low-dose chest CT. Reviewed, Interpreted and Dictated by Tono Becker MD Transcribed by Michelle Mir Authenticated by Tono Becker MD on 07/08/2021 05:27:38 PM [facility]
== END ==
PROVIDERS: PCP Nurse Practitioner Family; Visit Provider Nurse Practitioner Family
DX: Z87.891 Personal history of nicotine dependence (principal); Z12.2 Encounter for screening for malignant neoplasm of respiratory organs
CPT/HCPCS: 71271

== ENCOUNTER → 2021-10-14 15:53 | Outpatient (CLI) | payer OTHER, SELFPAY ==
--- NOTE | 2021-10-14 15:55 | MM_ITS ---
PROCEDURE INFORMATION: Exam: MG Bilateral Screening 3D Mammography Exam date and time: 10/14/2021 3:51 PM Age: 55 years old Clinical indication: Screening examination TECHNIQUE: Imaging protocol: Bilateral Screening tomosynthesis and 2D mammography including computer-aided detection (CAD) when performed. COMPARISON: 1. MG MM DIG SCREENING MAMM BI W/CAD 01/15/2020 3:40 PM 2. MG MM DIG SCREENING MAMM BI W/CAD 12/29/2018 9:13 AM FINDINGS: MAMMOGRAPHY: Breast composition: There are scattered areas of fibroglandular density. Mass: 1.5 cm lobulated mass in the posterior third of the left upper outer quadrant. Questionable adjacent 0.7 cm mass Architectural distortion: None. Calcifications: No suspicious calcifications. Asymmetric density: None. Skin thickening: None. Axillary adenopathy: None. IMPRESSION: Patient to be recalled for left breast ultrasound for further evaluation of two left breast masses ASSESSMENT: BI-RADS Category 0: Incomplete- Need Additional Imaging Evaluation and/or Prior Mammograms for Comparison
== END ==
PROVIDERS: PCP Nurse Practitioner Family; Visit Provider Nurse Practitioner Family
DX: Z12.31 Encounter for screening mammogram for malignant neoplasm of breast (principal)
CPT/HCPCS: 77063; 77067

== ENCOUNTER → 2021-10-23 10:12 | Outpatient (CLI) | payer OTHER, SELFPAY ==
--- NOTE | 2021-10-23 10:18 | US_ITS ---
PROCEDURE INFORMATION: Exam: US Left Breast, Complete Exam date and time: 10/23/2021 10:25 AM Age: 56 years old Clinical indication: Patient recalled for further evaluation of 2 left breast masses TECHNIQUE: Imaging protocol: Complete ultrasound of all four quadrants of the Left breast and the retroareolar regions, including ultrasound of the axilla when performed. COMPARISON: BL US BREAST-LT COMPLETE W/AXILLA 10/07/2016 3:15 PM FINDINGS: Breast: Sonographic images of the left breast including the retroareolar region, all 4 quadrants and the axilla demonstrates 2 adjacent irregularly marginated heterogeneous hypoechoic masses. They are noted in the 1 o'clock axis 10 cm from the nipple and correspond to the masses on mammography. They measure 1.2 x 1.0 x 1.2 cm and 0.5 x 0.3 x 0.2 cm. An adjacent incidental 0.3 cm cyst is noted. No architectural distortion or acoustical shadowing. No skin thickening or axillary adenopathy. IMPRESSION: Two suspicious masses in the left upper outer quadrant. Ultrasound-guided core biopsy of both masses is recommended for further evaluation ASSESSMENT: BI-RADS Category 4: Suspicious
== END ==
PROVIDERS: PCP Nurse Practitioner Family; Visit Provider Nurse Practitioner Family
DX: R92.8 Other abnormal and inconclusive findings on diagnostic imaging of breast (principal)
CPT/HCPCS: 76641

== ENCOUNTER → 2021-10-28 08:43 | Outpatient (CLI) | payer OTHER, SELFPAY ==
--- NOTE | 2021-10-28 08:59 | US_ITS ---
FINAL REPORT CLINICAL HISTORY: LT BREAST LOBULATED MASS LUQ FINDINGS: ULTRASOUND-GUIDED LEFT BREAST CORE BIOPSY TECHNIQUE: Limited images were obtained to localize region of interest. The left breast was prepped in a routine sterile fashion and locally anesthetized with 1% lidocaine. Standard written informed consent was obtained. The biopsy needle was positioned within the outer periphery of the lesion. A total of 4 passes were made with a 18 gauge core biopsy needle. A biopsy marker clip was deployed in satisfactory position. Postbiopsy mammogram showed postbiopsy changes with clip in satisfactory position. Procedure was well tolerated . CONCLUSION: 1. Technically successful ultrasound guided core biopsy of left breast lesion as above. 2. Biopsy marker clip deployed Authenticated and [facility]
[2021-10-28 09:57] LABS: Basophils # 0.2 K/mm3 (0-0.2); Basophils % 2.4 % (0.1-2.0); Eosinophils # 0.2 K/mm3 (0.0-0.4); Hematocrit 47.4 % (37.0-47.0); Hemoglobin 15.1 g/dL (12.2-16.2); Lymphocytes # 3.8 K/mm3 (0.7-4.5); Lymphocytes % 39.6 % (10-50); Mean Corpuscular HGB Conc 31.9 g/dL (31.8-35.4); Mean Corpuscular Hemoglobin 32.7 pg (27.0-31.2); Mean Corpuscular Volume 102.7 fl (81-99); Mean Platelet Volume 8.7 fl (7.4-10.4); Monocytes # 0.5 K/mm3 (0.1-1.0); Monocytes % 5.7 % (1.7-9.3); Neutrophils # 4.8 K/mm3 (1.8-7.8); Neutrophils % 50.3 % (37.0-80.0); Platelet Count 375 K/mm3 (142-424); Red Blood Count 4.61 M/mm3 (4.20-5.40); Red Cell Distribution Width 12.6 % (11.5-17.5); White Blood Count 9.5 K/mm3 (4.8-10.8)
[2021-10-28 10:09] LABS: Alanine Aminotransferase 21 U/L (12-78); Albumin/Globulin Ratio 1.5 (1.1-1.8); Alkaline Phosphatase 107 U/L (38-126); Anion Gap 11.6 mEq/L (5-15); Aspartate Amino Transferase 31 U/L (14-36); Blood Urea Nitrogen 10 mg/dl (7-17); Carbon Dioxide 31 mmol/L (22.0-30.0); Chloride 103 mmol/L (98-107); Chol/HDL Ratio 3.8 (1-3.5); Cholesterol 252 mg/dl (140-200); Estimated Glomerular Filt Rate 75 ml/min (>60); GFR (African American) 90 ML/MIN (>60); Globulin 2.6 g/dL (1.3-3.2); Glucose 108 mg/dl (74-100); HDL Cholesterol 66 mg/dl (40-60); Potassium 4.6 mmoL/L (3.5-5.1); Sodium 141 mmol/L (136-145); Total Protein,Serum 6.6 g/dl (6.3-8.2); Triglycerides 130 mg/dl (30-150); VLDL Cholesterol 26 mg/dL (0-40)
[2021-10-28 10:21] LABS: Direct LDL Cholesterol 143.64 mg/dL (100-129)
[2021-10-28 10:25] LABS: Bilirubin,Total < 0.1 mg/dl (0.2-1.3)
[2021-10-28 10:40] LABS: Thyroid Stimulating Hormone 3.95 uIU/mL (0.465-4.68)
--- NOTE | 2021-10-28 11:16 | MM_ITS ---
FINAL REPORT CLINICAL HISTORY: clip placement FINDINGS: MAMMOGRAM LEFT TECHNIQUE: Standard digital 2-D views COMPARISON: None DENSITY: There are scattered areas of fibroglandular density FINDINGS: Post biopsy marker clip is noted to be in satisfactory position within the posterior portion of the nodule.. Postbiopsy changes are noted. IMPRESSION: Biopsy marker clip in good position RECOMMENDATION: Pending histopathology evaluation. If histopathology is benign, six-month sonographic and mammographic follow-up recommended. Authenticated and [facility]
== END ==
PROVIDERS: PCP Nurse Practitioner Family; Visit Provider Nurse Practitioner Family
DX: R92.8 Other abnormal and inconclusive findings on diagnostic imaging of breast (principal); I10 Essential (primary) hypertension; E78.2 Mixed hyperlipidemia; E03.9 Hypothyroidism, unspecified
CPT/HCPCS: 19083; 36415; 76942; 77065; 80053; 80061; 84443; 85025

== ENCOUNTER → 2022-01-14 09:42 | Outpatient (CLI) | payer OTHER, SELFPAY ==
--- NOTE | 2022-01-14 09:46 | NM_ITS ---
FINAL REPORT CLINICAL HISTORY: MALIGNANT NEOPLASM OF LOWER QUADRANT OF LEFT BREAST 10:00 am 24.7 mci tc MDP injected into lt ant FINDINGS: EXISTING RELEVANT IMAGING STUDIES: TECHNIQUE: The patient was injected with 24.7 mCi of technetium 99-MDP. 3 hour delayed images were obtained. FINDINGS: No other abnormal tracer activity is identified to suggest occult fracture or metastatic disease. IMPRESSION: No findings to indicate metastatic bone disease. Reviewed, Interpreted and Dictated by Mathew Rey MD Transcribed by Carlos Bains Authenticated and [facility]
== END ==
PROVIDERS: PCP Nurse Practitioner Family; Visit Provider Internal Medicine
DX: C50.512 Malignant neoplasm of lower-outer quadrant of left female breast (principal); Z17.1 Estrogen receptor negative status [ER-]
CPT/HCPCS: 78306; A9503

== ENCOUNTER → 2022-01-15 08:59 | Outpatient (CLI) | payer OTHER, SELFPAY ==
--- NOTE | 2022-01-15 09:02 | CT_ITS ---
FINAL REPORT TECHNIQUE: Oral and IV contrast enhanced exam. This study was performed with techniques to keep radiation doses as low as reasonably achievable (ALARA). Individualized dose reduction techniques using automated exposure control or adjustment of mA and/or kV according to the patient's size were employed. CLINICAL HISTORY: breast cancer FINDINGS: Abdomen: Liver has an unremarkable CT appearance. Gallbladder is unremarkable. The spleen, pancreas and adrenal glands are unremarkable. Kidneys show no mass or obstruction. Moderate fecal impaction. No bowel obstruction or fluid collection is seen. Pelvis: The appendix is normal. Pelvic bowel loops are unremarkable. No fluid collection or adenopathy is seen. Uterus is unremarkable. Osseous structures are unremarkable. IMPRESSION: No evidence of metastatic bone disease. Reviewed, Interpreted and Dictated by Mathew Rey MD Transcribed by Carlos Bains Authenticated and [facility]
--- NOTE | 2022-01-15 09:02 | CT_ITS ---
FINAL REPORT TECHNIQUE: Axial CT with contrast with reconstruction. This study was performed with techniques to keep radiation doses as low as reasonably achievable (ALARA). Individualized dose reduction techniques using automated exposure control or adjustment of mA and/or kV according to the patient's size were employed. CLINICAL HISTORY: MALIGANT NEOPLASM OF LOWER QUAD. breast cancer COMPARISON: July 08, 2021 FINDINGS: Thoracic aorta shows no dissection or aneurysm. Small sub cm right middle lobe and right lower lobe nodules are stable. Tiny nodule along the left major fissure in the left lower lobe was less apparent on the prior exam but likely benign.. There is no significant pleural effusion. There is no significant pericardial effusion. Mild bilateral axillary adenopathy. Right axillary lymph node measures 2.2 x 0.9 cm and previously measured 1.3 x 0.5 cm. Left axillary lymph node measures 2.1 x 0.9 cm and previously measured 1.1 x 0.5 cm. Interval development of a presumed postoperative hematoma in the left breast measures 8.9 x 5.7 cm. IMPRESSION: Stable nonspecific tiny lung nodules, favor benign. Mild nonspecific bilateral axillary adenopathy, new. Left breast mass presumably a postoperative hematoma. Reviewed, Interpreted and Dictated by Mathew Rey MD Transcribed by Carlos Bains Authenticated and [facility]
[2022-01-15 09:42] LABS: Blood Urea Nitrogen 11 mg/dl (7-17); Estimated Glomerular Filt Rate 65 ml/min (>60); GFR (African American) 79 ML/MIN (>60)
== END ==
PROVIDERS: PCP Nurse Practitioner Family; Visit Provider Internal Medicine
DX: C50.512 Malignant neoplasm of lower-outer quadrant of left female breast (principal); Z17.1 Estrogen receptor negative status [ER-]
CPT/HCPCS: 36415; 71260; 74177; 82565; 84520; Q9967

== ENCOUNTER → 2022-09-23 17:12 | Outpatient (CLI) | payer OTHER, SELFPAY ==
[2022-09-23 17:43] LABS: Basophils % 0.6 % (0.1-2.0); Eosinophils # 0.1 K/mm3 (0.0-0.4); Hematocrit 43.3 % (37.0-47.0); Lymphocytes # 1.9 K/mm3 (0.7-4.5); Lymphocytes % 35.2 % (10-50); Mean Corpuscular HGB Conc 32.3 g/dL (31.8-35.4); Mean Corpuscular Hemoglobin 31.4 pg (27.0-31.2); Mean Corpuscular Volume 97.1 fl (81-99); Mean Platelet Volume 7.3 fl (7.4-10.4); Monocytes # 0.3 K/mm3 (0.1-1.0); Monocytes % 5.9 % (1.7-9.3); Neutrophils # 3.1 K/mm3 (1.8-7.8); Neutrophils % 56.2 % (37.0-80.0); Platelet Count 309 K/mm3 (142-424); Red Blood Count 4.46 M/mm3 (4.20-5.40); Red Cell Distribution Width 12.6 % (11.5-17.5); White Blood Count 5.4 K/mm3 (4.8-10.8)
[2022-09-23 18:14] LABS: Alanine Aminotransferase 28 U/L (12-78); Albumin Level 4.1 g/dl (3.5-5.0); Albumin/Globulin Ratio 1.6 (1.1-1.8); Alkaline Phosphatase 132 U/L (38-126); Anion Gap 13.2 mEq/L (5-15); Aspartate Amino Transferase 32 U/L (14-36); Bilirubin,Total 0.4 mg/dl (0.2-1.3); Blood Urea Nitrogen 11 mg/dl (7-17); Carbon Dioxide 25 mmol/L (22.0-30.0); Chloride 102 mmol/L (98-107); Chol/HDL Ratio 3.1 (1-3.5); Cholesterol 276 mg/dl (140-200); Estimated Glomerular Filt Rate 75 ml/min (>60); GFR (African American) 90 ML/MIN (>60); Globulin 2.5 g/dL (1.3-3.2); Glucose 114 mg/dl (74-100); HDL Cholesterol 88 mg/dl (40-60); Potassium 4.2 mmoL/L (3.5-5.1); Sodium 136 mmol/L (136-145); Total Protein,Serum 6.6 g/dl (6.3-8.2); Triglycerides 99 mg/dl (30-150); VLDL Cholesterol 20 mg/dL (0-40)
[2022-09-23 18:25] LABS: Direct LDL Cholesterol 139.46 mg/dL (100-129)
[2022-09-23 18:31] LABS: 25-OH Vitamin D, Total 59.6 ng/mL (30-100)
[2022-09-23 18:44] LABS: Thyroid Stimulating Hormone 0.21 uIU/mL (0.465-4.68)
== END ==
PROVIDERS: PCP Nurse Practitioner Family; Visit Provider Nurse Practitioner Family
DX: E03.9 Hypothyroidism, unspecified (principal); I10 Essential (primary) hypertension; E78.2 Mixed hyperlipidemia; E55.9 Vitamin D deficiency, unspecified
CPT/HCPCS: 36415; 80053; 80061; 82306; 84443; 85025

== ENCOUNTER → 2023-01-26 13:58 | Outpatient (CLI) | payer OTHER, SELFPAY ==
--- NOTE | 2023-01-26 14:03 | CT_ITS ---
FINAL REPORT TECHNIQUE: Axial CT images of the chest were obtained without contrast. Low-dose protocol was utilized. This study was performed with techniques to keep radiation doses as low as reasonably achievable (ALARA). Individualized dose reduction techniques using automated exposure control or adjustment of mA and/or kV according to the patient's size were employed. CLINICAL HISTORY: TOBACCO USE x 1.5 ppd x 40 yrs early COPD hx of histoplasmosis hx breast cancer october 2021 father lung cancer grandfather lung cancer COMPARISON: CT low-dose 07/08/[address] chest with contrast 01/15/2022 FINDINGS: CT CHEST WITHOUT, LOW DOSE SCREENING CT Di Vol: 2.90 mGy DLP: 110.46 mGy*cm There are several borderline size mediastinal nodes. There has been interval improvement in right axillary adenopathy compared to most recent CT scan. The heart size is normal. There is no pleural or pericardial effusion. The lung windows show a stable 4 mm right middle lobe nodule seen on image 56. There are several less than 5 mm lateral right lower lobe nodules which are also stable. No new mass or nodule identified. There are multiple calcified granulomas. There has been interval improvement in the lateral left breast mass, presumed hematoma. Limited images of the upper abdomen demonstrate no acute findings.. IMPRESSION: Stable lung nodules. LR Category 2: 12 month follow-up low-dose chest CT is recommended. Improved presumed hematoma lateral left breast. Improved right axillary adenopathy. Reviewed, Interpreted and Dictated by Blaine Benoit III, MD Transcribed by Yolis Sol Authenticated and [facility]
== END ==
PROVIDERS: PCP Nurse Practitioner Family; Visit Provider Nurse Practitioner Family
DX: Z72.0 Tobacco use (principal)
CPT/HCPCS: 71271

== ENCOUNTER → 2023-02-16 13:04 | Outpatient (CLI) | payer OTHER, SELFPAY ==
--- NOTE | 2023-02-16 13:06 | CA_ITS ---
APPROVED REPORT EXAM: Comprehensive 2D, Doppler, and color-flow Echocardiogram Orchid Superintendent: Dilia Mckeon, SHANNON, RVS Ht: 5 ft 3 in Wt: 180lbs BSA: 1.85 BP: 155/80 mmHg Indications: SOB, Hx- radiation with breast Cancer, HTN, COPD, Smoker, CP, Palpitations, GERD 2D Dimensions Aortic Root 3.01 cm LA Volume 34.70 mL Left Atrium 2.11 cm LA Volume Index 18.174023 mL/m2 (M/F) 16-34 LVOT 2.11 cm (M/F) 1.5-2.5 M-Mode Dimensions RVDd 2.25 cm (0.9-2.6) LA Diam 2.86 cm (1.9-4.0) LVDd 4.27 cm (3.5-5.7) Ao Diam 3.03 cm (2.0-3.7) LVDs 2.22 cm (3.5-5.7) IVSd 0.98 cm (0.6-1.1) PWd 0.94 cm (0.6-1.1) EF (Teich) 79.70% EPSs 0.44 cm FS 48.00% EDV (Teich) 81.70 mL TAPSE 2.02 (<1.7) ESV (Teich) 16.60 mL LV Diastology E Decel Time 190.00 (160-240 msec) E/A Ratio 0.89 MED E' 6.40 (< 7 cm/sec) MED A' 8.10 cm/s E'/MED E' Ratio 11.66 (>14) LAT E' 8.50 (<10 cm/sec) LAT A' 8.20 cm/s E/LAT E' Ratio 8.78 (>14) Aortic Valve LVOT Max 95.00 (70-110 cm/s) LVOT VTI 20.02 cm AoV Peak Gurwinder. 121.00 (50-130 cm/s) AO Peak GR. 5.90 mmHg AO Mean GR. 3.00 (<5 mmHg) AO VTI 24.06 (18-25 cm) NIVIA (VTI) 2.91 (2.5-4.5 cm2) Mitral Valve MV A Velocity 84.00 (40-130 cm/s) E/A Ratio 0.89 MV Decel. Time 190.00 (160-240 ms) Tricuspid Valve TR P. Velocity 181.00 cm/s Left Ventricle The left ventricle is normal size. The left ventricular systolic function is normal. The left ventricular ejection fraction is within the normal range. There is normal left ventricular wall thickness. There is normal LV segmental wall motion. The left ventricular diastolic function is normal. LVEF is 55%. Right Ventricle The right ventricle is normal size. The right ventricular systolic function is normal. There is increased RV wall thickness. Atria The left atrium size is normal. The right atrium size is normal. There is no Doppler evidence of interatrial shunt. Aortic Valve The aortic valve opens well. There is no aortic valvular stenosis. Trace aortic regurgitation. Mitral Valve The mitral valve is normal in structure. No evidence of mitral valve stenosis. Trace mitral regurgitation. Tricuspid Valve The tricuspid valve leaflets are thin and pliable. Trace tricuspid regurgitation. There is insufficient TR jet to estimate RVSP. Pulmonic Valve The pulmonary valve is normal in structure. Trace pulmonic regurgitation. Great Vessels The aortic root is normal in size. The ascending aorta is normal in size. IVC is normal in size and collapses >50% with inspiration. Pericardium Trivial pericardial effusion. Other Information Study Quality: Fair Conclusion Normal biventricular systolic function. No significant valvular stenosis or regurgitation. Trivial pericardial effusion. Electronically signed by : Agata Shine MD 02/18/2023 22:11:05
[2023-02-16 15:42] LABS: Free T4 (Free Thyroxine) 1.49 ng/dl (0.78-2.19)
[2023-02-16 15:56] LABS: Thyroid Stimulating Hormone 1.04 uIU/mL (0.465-4.68)
== END ==
PROVIDERS: PCP Nurse Practitioner Family; Visit Provider Nurse Practitioner Family
DX: R06.09 Other forms of dyspnea (principal); E03.9 Hypothyroidism, unspecified
CPT/HCPCS: 36415; 84439; 84443; 93306

== ENCOUNTER 2023-06-06 08:58 | Outpatient (CLI) | payer OTHER, SELFPAY ==
--- NOTE | 2023-06-06 09:03 | NM_ITS ---
FINAL REPORT CLINICAL HISTORY: BREAST CANCER, rt sided pain above the hip 9:20am 25.5 mci tc mdp COMPARISON: None FINDINGS: EXISTING RELEVANT IMAGING STUDIES: None TECHNIQUE: The patient was injected with 25.5 mCi of technetium 99-MDP. 3 hour delayed images were obtained. FINDINGS: No abnormal tracer activity is identified to suggest occult fracture or metastatic disease. IMPRESSION: No findings to indicate metastatic bone disease. Reviewed, Interpreted and Dictated by Tono Becker MD Transcribed by Marie Thomas Authenticated and [facility]
[2023-06-06] MEDS: SODIUM CHLORIDE 0.9% 10ML SYR (RAD ONLY) 10 ML IV (09:35)
[2023-06-06] MEDS: ISOTOPE MDP (BONE);1 DOSE VIAL IV (09:35)
== END 2023-06-06 23:59 ==
PROVIDERS: PCP Nurse Practitioner Family; Visit Provider Internal Medicine
DX: C50.512 Malignant neoplasm of lower-outer quadrant of left female breast (principal); Z17.1 Estrogen receptor negative status [ER-]
CPT/HCPCS: 78306; A9503

== ENCOUNTER 2024-02-16 10:56 | Day surgery (SDC) | payer OTHER, SELFPAY ==
[2024-02-10 14:04] VITALS: BMI 30.4
[2024-02-16] VITALS (8 sets, daily range): BP systolic 104–140; BP diastolic 60–85; PULSE 64–87; RESP 16–18; TEMP 36.2–36.6; O2SAT 93–99
[2024-02-16] MEDS: LACTATED RINGERS 1000ML 1,000 ML 25 ML IV (11:24)
--- NOTE | 2024-02-16 12:54 | EXP.HP ---
History of Present Illness *Admission Date: 02/16/24 *Reason for visit:: Surveillance-personal history of colon polyps *History of present illness: Mrs. Robert is a 58-year-old female who is here for surveillance colonoscopy secondary to a personal history of colon polyps. The examination is deemed medically necessary for colonoscopy. The patient has been seen, interviewed and examined prior to the procedure by both myself and the anesthesia provider. [facility] Disclaimer: The information contained in this section may have been updated after the patient was seen, as this information can be updated by other users. Medical History (Updated 02/16/24 @ 12:55 by Moses Quintero II, MD) ADD (attention deficit disorder) Graves disease History of hypothyroidism Breast cancer Dyspnea Chest pain Tobacco abuse SOB (shortness of breath) Palpitations Surgical History H/O eye surgery History of lumpectomy History of delivery H/O breast surgery Family History Father Diabetes Heart attack Cancer Grandfather Cancer Mother Rheumatoid arthritis Social History Smoking Status: Current every day smoker tobacco type: cigarettes packs per day: 1 alcohol intake: never substance use type: denies use current occupational status: other Travel in the last 8 weeks: None caffeine: Yes Other Medical History Have you received the Flu Vaccine for this season: No Have you received the Pneumonia Vaccine: No Review of Systems Review of Systems Review of systems (narrative): Negative *Cardiovascular Comments: Negative *Gastrointestinal Comments: Negative *Genitourinary Comments: Negative *Musculoskeletal Comments: Negative *Neurologic Comments: Negative Meds Home Medications and Allergies Home Medications ?Medication ?Instructions ?Recorded ?Confirmed ?Type dextroamphetamine-amphetamine 20 20 mg PO DAILY ADD 10/27/17 02/16/24 History mg tablet (Adderall) fluticasone propionate 50 1 spray intranasal DAILY allergies 10/28/17 02/16/24 History mcg/actuation nasal spray,suspension (Children's Flonase Allergy Relief) cholecalciferol (vitamin D3) 50 2,000 unit PO DAILY Supplement 08/30/18 02/16/24 History mcg (2,000 unit) tablet aspirin 81 mg tablet,delayed 81 mg PO DAILY 09/15/18 02/16/24 History release (Adult Low Dose Aspirin) loratadine 10 mg tablet (Claritin) 10 mg PO DAILY 09/15/18 02/16/24 History omeprazole 40 mg capsule,delayed 40 mg PO DAILY PRN GERD 03/28/20 02/16/24 History release levothyroxine 112 mcg tablet 112 mcg PO DAILY 12/01/22 02/16/24 History (Synthroid) metoprolol succinate 50 mg 50 mg PO DAILY 12/01/22 02/16/24 History tablet,extended release 24 hr B-complex with vitamin C 1 cap PO DAILY 02/10/24 02/16/24 History ascorbic acid (vitamin C) 500 mg 500 mg PO DAILY 02/10/24 02/16/24 History capsule,extended release atorvastatin 20 mg tablet 20 mg PO DAILY 02/10/24 02/16/24 History sertraline 50 mg tablet (Zoloft) 50 mg PO DAILY 02/10/24 02/16/24 History New Prescriptions to Start Prescriptions: Allergies Allergy/AdvReac Type Severity Reaction Status Date / Time No Known Drug Allergies Allergy Unknown Verified 12/01/22 15:03 [NKDA] Exam Data for Last 24 hours Vital signs and Labs for Last 24 Hours: Temp Pulse Resp BP Pulse Ox O2 Del Method O2 Flow Rate 97.8 F 87 16 130/76 93 L Nasal Cannula 5 02/16/24 11:08 02/16/24 11:08 02/16/24 11:08 02/16/24 11:08 02/16/24 11:08 02/16/24 12:41 02/16/24 12:41 *Routine HEENT Exam Head: Present normocephalic Eye: Present EOMI and PERRL ENT: Present mucous membranes moist *Routine Neck Exam Neck: Present supple *Routine Respiratory Exam Respiratory: Present CTA bilaterally *Routine Cardiovascular Exam Cardiovascular: Present RRR *Routine Abdominal Exam Abdominal: Present soft and normoactive bowel sounds; Absent tenderness *Routine Rectal Exam Rectal:: deferred *Routine Genitalia Exam Genitalia:: deferred *Routine Extremities Exam Extremities: Absent cyanosis, clubbing or edema *Routine Skin Exam Skin: Present warm; Absent rash *Routine Neurological Exam Neurological: Present alert and oriented X3 Assessment and Plan *Assessment and plan (1) Personal history of hyperplastic colon polyps: Status: Acute Category: Medical Code(s): Z86.0102 - Personal history of hyperplastic colon polyps Plan A/P: 1. Personal history of colon polyps is the preprocedural diagnosis. The patient will be anesthetized/sedated using MAC sedation. The patient has been seen and examined. Cardiac and lung assessment prior to the examination is stable. Proceed with planned colonoscopy
--- NOTE | 2024-02-16 12:56 | P.PCN_ITS ---
[facility] Procedure Note Date: 02/16/24 Time: 13:10 Procedure Note:: Colonoscopy Procedure Report: Colonoscopy with cold snare polypectomy Endoscopist: Moses Quintero II, MD Referring physician: JOELLE Soria Date of Procedure: February 16, 2024 Equipment: Olympus 190 variable stiffness pediatric colonoscope Sedation: MAC sedation Indication: Mrs. Robert is a 58-year-old female who is here for surveillance colonoscopy. She had a colonoscopy in August 2018 and had a single polyp (hyp erplastic polyp) removed. She states that she gets colonoscopies every 5 years. She does state that there is colon cancer on the maternal side of the family and her mother had an advanced adenomatous polyp removed. The patient reports no abdominal pain, weight loss or change in bowel habits. She did have some bright red rectal bleeding 1 time a couple of years ago. Procedure: Prior to the procedure, a history and physical exam was performed, and patient's medications and allergies were reviewed. The risks, benefits and alternatives of the sedation and procedure were discussed with the patient. All questions were answered and informed consent was obtained. The patient was brought to the procedure room. Patient identification and proposed procedure were verified by the physician and the nurse. The patient was placed in a left lateral decubitus position and the scope was passed under direct vision. Throughout the procedure, the patient's blood pressure, pulse, and oxygen saturations were monitored continuously. The colonoscopy was accomplished without difficulty. The patient tolerated the procedure well. Findings: On digital rectal examination there was normal rectal tone. There were no external hemorrhoids. The colonoscope was introduced through the anal canal to the rectum and advanced to the cecum. The ileocecal valve and appendiceal orifice were identified. The scope was advanced a short distance into the ileum which appeared grossly normal. The scope was then withdrawn into the colon. There was a single 4 mm polyp in the ascending colon removed via cold snare polypectomy. The cecum, ascending and transverse colon and mucosa were grossly normal. There were scattered diverticuli throughout the descending and sigmoid colon (LEFT colon). The rectum itself was normal. Upon retroflexion within the rectum there were grade 1-2 internal hemorrhoids. The preparation was excellent throughout with Tyler Preparation Score of 9. The cecal time was 11 minutes. Impression: 1. Diminutive ascending colon polyp 2. Left-sided diverticulosis 3. Grade 1-2 internal hemorrhoids Plan: I will follow-up the polyp histology. If the polyp is adenomatous, I would recommend repeat surveillance colonoscopy again in 7 years. I would encourage a fiber bowel regimen on a long-term daily maintenance basis.
== END 2024-02-16 14:05 | disposition home or self-care (01) ==
PROVIDERS: PCP Nurse Practitioner Family; Visit Provider Internal Medicine Gastroenterology
PROC: 0DJD8ZZ Inspection of Lower Intestinal Tract, Via Natural or Artificial Opening Endoscopic (ICD-10-PCS; CPT 45378; principal; 2024-02-16 12:00)
DX: K63.5 Polyp of colon (principal); K57.30 Diverticulosis of large intestine without perforation or abscess without bleeding; K64.8 Other hemorrhoids; Z80.0 Family history of malignant neoplasm of digestive organs; Z86.0102 Personal history of hyperplastic colon polyps; Z12.11 Encounter for screening for malignant neoplasm of colon
CPT/HCPCS: 45385; J7120

== ENCOUNTER 2024-11-09 13:06 | Outpatient (CLI) | payer OTHER, SELFPAY ==
--- OUTSIDE RECORDS SUMMARY | 2024-11-09 13:08 | XMS_ITS | Encounter Summary ---
Author Organization [facility] Address [address] [place] [address] Care Team Providers Care Environmental Field Technician Name Role Phone Kasey Goncalves Xu DAHL Primary Care Provider [phone] Eliza Figueroa MD Unavailable [phone] Encounter Details Date Type Department Care Team (Late st Contact Info) Description 11/12/2021 Lab Requisition [facility] [address] [place] [address] Melvina Yen MD [address] [place] [address] Unspecified lump in unspecified breast Social History Tobacco Use Types Packs/Day Years Used Date Smoking Tobacco: Never Assessed Comments Unknown Sex and Gender Information Value Date Recorded Sex Assigned at Female 11/22/2021 7:44 PM EDT Legal Sex Female 7:47 PM EDT Gender Identity Female 11/22/2021 7:44 PM EDT Sexual Orientation Straight 11/22/2021 7: 44 PM EDT documented as of this encounter Plan of Treatment Upcoming Encounters Date Type Department Care Team (Late Contact Info) Description 11/19/2024 1:45 PM EDT Appointment [facility] [address] [facility] [address] [place] [address] 11/19/2024 3:00 PM EDT Office Visit [facility] [address] [place] [address] Eliza Figueroa MD [address] [place] [address] documented as of this encounter Procedures Procedure Name Priority Date/Time Associated Diagnosis Comments FISH, PARAFFIN D17Z1/HER2 Routine 11/12/2021 3:37 PM EDT Unspecified lump in unspecified breast SURGICAL PATHOLOGY CONSULT Routine 11/12/2021 3:37 PM EDT Unspecified lump in unspecified breast documented in this encounter Results * FISH, Paraffin D17Z1/HER2 (11/12/2021 3:37 PM EDT) Specimen Adequacy Adequate 022 12:56 PM EDT [facility] Comment: [id number] - Block A2 LEFT BREAST, CORE NEEDLE BIOPSY FOR MASS (OUTSIDE CASE: [id number]; 10/28/2021): - INVASIVE DUCTAL CARCINOMA, poorly differentiated (Sari grade III/III: tubule score=3, nuclear score=3, mitoses score=2), measuring up to 0.3 cm. - No lymphovascular invasion identified Interpretation Tissue type: left breast Pathology Case #: [id number] Result and Interpretation: Negative for ERBB2/HER2 gene amplification HER2-adelfo/ERBB2 gene amplification WAS NOT observed for this left breast specimen as defined by the 2018 ASCO/CAP guidelines. FISH results should be interpreted in conjunction with IHC (immunohistochemis try), clinical evaluation and other prognostic factors such as tumor size, vikram status, patient age, hormone receptor status, and other known risk factors. The HER2[ERBB2]/CEP 17 ratio: 1.0 The average HER2[ERBB2] copies per cell: 1.8 The average of CEP 17 copies per cell: 1.8 Total # of cells analyzed: 40 Number of observers: 2 Adequacy Sample for Evaluation: Adequate 12/03/2021 12:56 PM EDT [facility] ISCN nuc kaylee([id number]~4,ERBB 2x1~4)[40] Block #: [id number] A2 Fixation duration: 6- 72 hours Time to fixation: within 1 hour Fixative type: 10% neutral buffered formalin Reporting criteria according the ASCO/CAP guideline (Josey AC et al. 2018 [id number]): Group 1 (HER2 amplification positive): HER2/CEP17 ratio >= 2.0 and average HER2 copy number/cell >= 4.0 Group 2 (HER2 amplification positive ONLY if IHC is +3): HER2/CEP17 ratio >= 2.0 and average HER2 copy number/cell < 4.0 (additional workup is performed) Group 3 (HER2 amplification positive ONLY if IHC 2+ or 3+): HER2/CEP17 ratio < 2.0 and average HER2 copy number/cell >= 6.0 (additional workup is performed) Group 4 (HER2 amplification positive ONLY if IHC is +3): HER2/CEP17 ratio < 2.0 and average HER2 copy number/cell >= 4.0 and < 6.0 (additional workup is performed) Group 5 (HER2 amplification negative) HER2/CEP17 ratio < 2.0 and Average HER2 copy number/cell < 4.0 Methodology: Fluorescence in situ hybridization (FISH) was performed on a paraffin-embedded 4~5 m cut unstained tissue slide using the modified FDA approved PathVysion DNA probe kit ([employer], [place]). Unless otherwise indicated only invasive tumor marked by qualified Medical Pathologist is analyzed independently using a manual scoring system by at least two qualified technologists. Control specimens were processed simultaneously with each batch of HER2[ERBB2] specimens using the same method and results were as expected. At least 40/60 cells were analyzed, and sales representative canvas products images were captured and stored using Optimal Radiology software ([employer] 12/03/2021 12:56 PM EDT [facility] Disclaimer The PathVysion Kit has been approved by the U.S. Food and Drug Administration (FDA) for detecting amplification of the HER2[ERBB2] gene via fluorescence in situ hybridization (FISH) in formalin-fixed, paraffin-embedded human breast cancer tissue. This test was modified and its performance characteristics determined by the [facility]. Results from the PathVysion Kit are intended for use as an ADJUNCT to existing clinical and pathologic information currently used as prognostic factors in stage II, node-positive breast cancer patients. It should not be regarded as investigational or for research. This laboratory is certified under the Clinical Laboratory Improvement Amendments (CLIA) and accredited by the [employer] as qualified to perform high complexity clinical laboratory testing. Factors that can impact the overall HER2/CEP 17 ratio include HER2[ERBB2] gene deletion, tumor heterogeneity and/or centromere 17 (CEP 17) aneusomy (monosomy and polysomy). A false positive/negative FISH ratio can be driven by loss or gain of chromosome 17 (CEP 17) signals. Polysomy 17 occurs when the average CEP 17 copy number is >=3.0 per cell and can increase the possibility of false negative interpretation. Loss of the chromosome 17 centromere can increase the possibility of false positive interpretation. This assay has not been validated on decalcified tissues. Results should be interpreted with caution given the likelihood of false negativity on decalcified specimens. Molecular diagnostics test results may sometimes conflict with the histological interpretation. In such cases, the results should be integrated with the entire clinical and radiologic profile. False positive and false negative results may occur due to the nature of the specimen and probe. This test is being performed at the request of Dr. Blackburn. 12/03/2021 12:56 PM EDT [facility] Pathologist Signature 12/03/2021 12:56 PM EDT [facility] Pathologist Signature Reviewed by: Joselo Pete DO 12/03/2021 12:56 PM EDT [facility] Tissue 11/12/2021 3:37 PM EDT 11/30/2021 9:09 AM EDT us Melvina Yen MD LAB CYTOGENETICS ORDERAB LES Final Result [facility] [address] [place] [id number] * Surgical Pathology Consult (11/12/2021 3:37 PM EDT) Case Report Sugical Pathology Consult Case: [id number] Authorizing Provider: Melvina Yen MD Collected: 11/12/2021 1537 Ordering Location: [facility] Lab Received: 11/12/2021 1537 Pathologist: Toma Blackburn MD Specimen: Breast, Left, [id number] 08/12/202 2 11:21 AM EDT [facility] Addendum IHC performed at [facility]: A2-1: HER2/ADELFO Quantitative - Equivocal (2+) All controls show appropriate reactivity. All immunohistochemis try, in situ hybridization, and histochemical tests were developed by and are performed at the [facility], [address] [place] [address]. All tests reported here, except those addressing HER2 (breast) and PD-L1 expression as predictive markers, have not been cleared by or approved by the US Food and Drug Administration (FDA). The FDA has determined that such clearance or approval is not necessary. The laboratory is regulated under CLIA as qualified to perform high-complexity testing. The tests are used for clinical purposes. They should not be regarded as investigational or for research. Using appropriate positive and negative controls, the test for the presence of this oncoprotein is performed by the immunoperoxidase method, and reported according to the [place] Society of Clinical Oncology (ASCO/College of [place] [employer] (CAP) Guideline Recommendations (2018; version: BreastBiomarkers1 .2.0.1). HER-2/adelfo Immunohistochemis try IMMUNOHISTOCHEMIC AL INTERPRETATION: CELL MEMBRANE STAINING ONLY (Bly HER-2/Adelfo, clone [id number] Antibody). NEGATIVE: Score 0 (No staining observed or membrane staining that is incomplete and is faint/barely perceptible and within <10% of tumor cells. NEGATIVE: Score 1+ (Incomplete membrane staining that is faint/barely perceptible and within >10% of tumor cells*). EQUIVOCAL: Score 2+ (Weak to moderate complete membrane immunoreactivity in >10% of tumor cells or circumferential membrane staining that is intense but within <10% of cell*). POSITIVE: Score 3+ (Circumferential membrane staining that is complete and >10% of tumor cells*). *Readily appreciated using a low-power objective and observed within a homogenous and contiguous population of invasive tumor cells. Must order reflex test (same specimen using KAYLEE) or order a new test (new specimen if available, using IHC or KAYLEE). Primary antibody: Bly HER-2/Adelfo, clone [id number] Detection system: Bly UltraView 2 11:21 AM EDT [facility] Addendum electronically signed by Toma Blackburn MD on 11/27/2021 at 1121 EDT Final Diagnosis LEFT BREAST, CORE NEEDLE BIOPSY FOR MASS (OUTSIDE CASE: [id number]; 10/28/2021): - INVASIVE DUCTAL CARCINOMA, poorly differentiated (Pyrites grade III/III: tubule score=3, nuclear score=3, mitoses score=2), measuring up to 0.3 cm. - No lymphovascular invasion identified. 2 11:21 AM EDT [facility] at 1306 EDT Comment A block from the outside institution has been requested for HER2 FISH testing. 2 11:21 AM EDT [facility] Clinical Information N63.0 - Unspecified lump in unspecified breast [ICD-10-CM] 2 11:21 AM EDT [facility] Special and Immunohistochemical Stains Immunostains were performed at the outside institution with the following results for the invasive carcinoma (reviewed): - ESTROGEN RECEPTOR: NEGATIVE (0%) - PROGESTERONE RECEPTOR: NEGATIVE (0%) - HER2/ADELFO: EQUIVOCAL (2+) 2 11:21 AM EDT [facility] Gross Description A. [id number] Received along with a corresponding pathology report from [facility] are 13 slides labeled outside case: [id number] collected on 10/28/2021. 2 11:21 AM EDT [facility] Tissue Left breast structure / Unknown 11/12/2021 3:37 PM EDT 11/12/2021 3:37 PM EDT us Melvina eYn MD LAB PATHOLOGY ORDERABLES Edited Result - Final [facility] [address] [place] [address] documented in this encounter Visit Diagnoses Diagnosis Unspecified lump in unspecified breast documented in this encounter Care Teams Environmental Field Technician Relationship Specialty Start Date End Date Kasey Goncalves APRN [address] [place] [id number] PCP - General 10/16/21 Eliza Figueroa MD [address] [facility] [address] [place] [address] Consulting Physician Hematology and Oncology 01/19/22 documented as of this encounter
--- OUTSIDE RECORDS SUMMARY | 2024-11-09 13:08 | XMS_ITS | Clinical Summary ---
Author Organization [facility] Address [address] [place] [address] Care Team Providers Care Tours Hostess Name Role Phone IvannaKasey Xu DAHL Primary Care Provider [phone] Eliza Figueroa MD Unavailable [phone] Allergies No known active allergies Medications Adderall XR 20 MG 24 hr capsule Take 1 capsule (20 mg) by mouth 1 (one) time each day in the morning. 10/29/2021 Active metoprolol succinate XL (Toprol-XL) 50 MG 24 hr tablet Take 1 tablet (50 mg) by mouth 1 (one) time each day. 11/13/2021 Active fluticasone (Flonase) 50 MCG/ACT nasal spray INSTILL 2 SPRAYS IN EACH NOSTRIL EVERY DAY 04/02/2021 Active omeprazole (PriLOSEC) [address] capsule Take 1 capsule (40 mg) by mouth 1 (one) time each day if needed. 04/18/2016 Active Loratadine 10 MG capsule Take 1 capsule by mouth 1 (one) time each day. 04/18/2011 Active aspirin-acetami nophen-caffeine (Excedrin Migraine) 250-250-65 MG tablet Take 1 tablet by mouth every 6 (six) hours if needed for headaches. Active cholecalciferol (Vitamin D-3) 50 MCG (2000 UT) capsule Take 1 capsule (2,000 Units) by mouth. Active Synthroid 112 MCG tablet Take 1 tablet (112 mcg) by mouth 1 (one) time each day. 10/26/2022 Active ASPIRIN LOW DOSE PO Take 81 mg by mouth 1 (one) time each day. 11/03/2017 Active B Complex Vitamins (vitamin B complex) tablet 09/23/2022 Act josh sertraline (Zoloft) 25 MG tablet Take 1 tablet (25 mg) by mouth 1 (one) time each day. 12/01/2023 Active atorvastatin (Lipitor) 20 MG tablet Take 1 tablet (20 mg) by mouth 1 (one) time each day. 12/01/2023 Active Active Problems Problem Noted Date Diagnosed Date Encounter for antineoplastic chemotherapy 2021 Tobacco use disorder 12/22/2021 History of smoking 25-50 pack years 12/11/2021 Primary hypertension 12/11/2021 Attention deficit disorder (ADD) without hyperac tivity 12/11/2021 Graves disease 12/11/2021 Acquired hypothyroidism 12/11/2021 Panlobular emphysema 12/11/2021 Malignant neoplasm of lower- outer quadrant of left breast of female, estrogen receptor negative 11/24/2021 Cancer Staging:Clinical stage from 11/24/2021:Stage IB(cT1c, cN0, cM0, G3, ER-, MT-, HER2-) - Signed by Eliza Figueroa MD on 01/05/2022 Pathologic stage from 12/14/2021: pT1c(5), pN0(sn), cM0, GX, ER-, MT-, HER2- - Signed by Eliza Figueroa MD on 01/05/2022 Overview (11/24/2021): Added automatically from request for surgery [id number] Family History Medical History Relation Name Comments Lung cancer Father Breast cancer Mother's Sister Anesthesia problems Neg Hx Malig Hyperthermia Neg Hx Relation Name Status Comments Father Mother's Sister Alive Social History Tobacco Use Types Packs/Day Years Used Date Smoking Tobacco: Every Day Cigarettes 1.5 41.6 Started: 1983 Passive Smoke Exposure: Current Smokeless Tobacco: Never Tobacco Cessation:Ready to Q uit: Not Asked; Counseling Given: Not Answered Comments:Patient is seeing doctor in [place] to try to quit smoking. Currently 1. 5 ppd. Alcohol Use Standard Drinks/Week Comments Yes 0 (1 standard drink = 0.6 oz pur e alcohol) socially. PHQ-2 Answer Date Recorded Patient Health Questionnaire-2 Score 2 06/19/2024 PHQ-9 Answer Date Recorded Patient Health Questionnaire-9 Score 9 06/19/2024 Comments No Sex and Gender Information Value Date Recorded Sex Assigned at Female 11/22/2021 7:44 PM EDT Legal Sex Female 7:47 PM EDT Gender Identity Female 11/22/2021 7:44 PM EDT Sexual Orientation Straight 11/22/2021 7: 44 PM EDT Last Filed Vital Signs Vital Sign Reading Time Taken Comments Blood Pressure 108/56 12/21/2023 3:41 PM EDT Pulse 73 12/21/2023 3:41 PM EDT Temperature 37.2 C (98.9 F) 12/21/2023 3:41 PM EDT Respiratory Rate 17 12/21/2023 3:41 PM EDT Oxygen Saturation 94% 12/21/2023 3:41 PM EDT Inhaled Oxygen Concentration - - Weight 79.1 kg (174 lb 6.1 oz) 12/21/2023 3:41 P M EDT Height 160 cm (5' 3 ) 11/14/2023 1:43 PM EDT Body Mass Index 30.89 11/14/2023 1:43 PM EDT Plan of Treatment Upcoming Encounters Date Type Department Care Team (Late st Contact Info) Description 11/19/2024 1:45 PM EDT Appointment [facility] [place] [address] [address] [facility] [address] [place] [address] 11/19/2024 3:00 PM EDT Office Visit [facility] [address] [place] [address] Eliza Figueroa MD [address] [facility] [address] [address] Health Maintenance Due Date Last Done Comments [facility]-HIV Screening 1967 [facility]-Hepatitis C Screening 1967 [facility]-Infant/Child/Adol SDOH Screenings 1967 [facility]-Obesity Intervention 10/18/1973 [facility]- SDOH Screenings 10/18/1985 [facility]-Adult SDOH Screenings 10/18/1985 [facility]-DTaP,Tdap,and Td Vaccines (1 - Tdap) 10/18/1986 [facility]-Hepatitis B Vaccines (1 of 3 - 19+ 3-dose series) 10/18/1986 [facility]-Pneumococcal Vaccine: 50+ Years (1 of 2 - PCV) 10/18/1986 [facility]-Zoster Vaccines (1 of 2) 10/18/1986 [facility]-Pap Smear 10/18/1988 [facility]-Cervical Cancer Screening 10/18/1997 [facility]-HPV/Cotest 10/18/1997 CT Colonography 10/18/2012 Colonoscopy 10/18/2012 FIT-DNA 10/18/2012 FIT 10/18/2012 FOBT 10/18/2012 Sigmoidoscopy 10/18/2012 [facility]-Colorectal Cancer Screening 10/18/2012 [id number] Vaccine ( season) 2023 03/09/2022, 03/24/2021, 05/26/2020, Additional history exists [facility]-Influenza Vaccine (#1) 12/17/202402/10, 01/11/2022, 03/10/2021, Additional history exists [facility]-Depression Screening 06/19/2025 06/19/2024, 03/0 07/2024 [facility]-Breast Cancer Screening Discontinued 11/14/2023, 0 11/09/2022 HPV Vaccines Aged Out No longer eligi ble based on patient's age to complete this topic [facility]-HIB Vaccines Aged Out No longer e ligible based on patient's age to complete this topic [facility]-Hepatitis A Vaccines Aged Out No longer eligible based on patient's age to complete this topic [facility]-IPV Vaccines Aged Out No longer e ligible based on patient's age to complete this topic [facility]-Rotavirus Vaccines Aged Out No lo nger eligible based on patient's age to complete this topic Medical Devices Implanted Type Area Pastrycook'S Assistant Device Identifier Shelf Expiration Date Model / Serial / Lot [employer] Vision Eviva Std - [id number] Implanted:Qty: 1 on 12/14/2023 by Elizabeth Sol MD at [facility] Breast Right: Breast [id number] / / Needle Wire Localization 20g 7cm X 20cm - [id number] Implanted:Qty: 1 on 12/14/2021 by Trista Quiles MD at [facility] Left: Breast [employer]-[id number] / / Needle Wire Localization 20g 7cm X 20cm - [id number] Implanted:Qty: 1 on 12/14/2021 by Trista Quiles MD at [facility] Left: Breast [employer]-[id number] / / Procedures Procedure Name Priority Date/Time Associated Diagnosis Comments MAMMOGRAPHY BREAST DIAGNOSTIC TOMOSYNTHESIS BILATERAL Routine 11/14/2023 2:56 PM EDT Malignant neoplasm of lower-outer quadrant of left breast of female, estrogen receptor negative (CMS/HCC) from Last 3 Months or Most Recently Relevant to Health Maintenance Results * (ABNORMAL) Mammography Breast Diagnostic Tomosynthesis Bilateral (11/14/2023 2:56 PM EDT) Anatomical Region Laterality Modality Breast Bilateral Mammography Impressions 11/14/2023 3:17 PM EDT Right Breast BI-RADS Code: BI-RADS 4A. Low suspicion for malignancy. Left Breast BI-RADS Code: BI-RADS 2, Benign finding. RECOMMENDATIONS: Right Breast Recommendations: Stereotactic - Guided Breast Biopsy Left Breast Recommendations: Diagnostic Mammogram in 1 Year CRITICAL RESULT: No. COMMUNICATION: The results and recommendations were discussed with the patient and a printed lay language version of the imaging report was given to the patient at the time of the visit. The mammogram was read with the assistance of CAD and tomosynthesis. By electronically signing this report, I, the attending physician, attest that I have personally reviewed the images/data for the above examination(s) and agree with the final edited report. Drafted by Juan Andrews MD on 11/14/2023 1:58 PM Final report signed by Carolina Maldonado MD on 11/14/2023 3:17 PM Narrative 11/14/2023 3:17 PM EDT CLINICAL INDICATION: 58-year-old female with history of left breast cancer status post lumpectomy in November 2021. No new problems. TECHNIQUE: Bilateral diagnostic mammogram was performed. Computer assisted detection was used in the interpretation of this study. Tomosynthesis was used in the interpretation of this study. COMPARISON: 11/09/2022, 12/14/2021, 10/28/2021, 10/14/2021, 01/15/2020 Bilateral Breast Density: The breast tissue is heterogeneously dense, which may obscure small masses. FINDINGS: Mammogram Findings: Right breast: 1. There are 13 mm grouped calcifications in the upper outer right breast middle depth. BI-RADS 4A. Left breast: 2. Stable post lumpectomy changes of the left breast. No suspicious masses, calcifications or areas of architectural distortion. Procedure Note Jody Maldonado MD - 11/14/2023 CLINICAL INDICATION: 58-year-old female with history of left breast cancer status postlumpectomy in November 2021. No new problems. TECHNIQUE: Bilateral diagnostic mammogram was performed. Computer assisted detection was used in the interpretation of this study.Tomosynthesis was used in the interpretation of this study. COMPARISON: 11/09/2022, 12/14/2021, 10/28/2021, 10/14/2021, 01/15/2020 Bilateral Breast Density: The breast tissue is heterogeneously dense,which may obscure small masses. FINDINGS: Mammogram Findings: Right breast: 1. There are 13 mm grouped calcifications in the upper outer right breastmiddle depth. BI-RADS 4A. Left breast: 2. Stable post lumpectomy changes of the left breast. No suspiciousmasses, calcifications or areas of architectural distortion. IMPRESSION: Right Breast BI-RADS Code: BI-RADS 4A. Low suspicion for malignancy. Left Breast BI-RADS Code: BI-RADS 2, Benign finding. RECOMMENDATIONS: Right Breast Recommendations: Stereotactic - Guided Breast Biopsy Left Breast Recommendations: Diagnostic Mammogram in 1 Year CRITICAL RESULT: No. COMMUNICATION: The results and recommendations were discussed with the patient and aprinted lay language version of the imaging report was given to thepatient at the time of the visit. The mammogram was read with theassistance of CAD and tomosynthesis. By electronically signing this report, I, the attending physician, ailyn I have personally reviewed the images/data for the aboveexamination(s) and agree with the final edited report. Drafted by Juan Andrews MD on 11/14/2023 1:58 PM Final report signed by Carolina Maldonado MD on 11/14/2023 3:17 PM Eliza Figueroa MD IMG BI PROCEDURES Final Resul t from Last 3 Months or Most Recently Relevant to Health Maintenance Insurance [facility] Care Teams Tours Hostess Relationship Specialty Start Date End Date Kasey Goncalves APRN [address] [place] [address] PCP - General 10/16/21 Eliza Figueroa MD [address] [facility] [address] [place] [id number] Consulting Physician Hematology and Oncology 01/19/22
--- OUTSIDE RECORDS SUMMARY | 2024-11-09 13:08 | XMS_ITS ---
Author Organization [facility] Address [address] [place] [id number] Care Team Providers Care Roundhouse Worker Name Role Phone Kasey Goncalves Xu DAHL Primary Care Provider [phone] Eliza Figueroa MD Unavailable [phone] Active Problems Problem Noted Date Diagnosed Date [...] from 11/24/2021:Stage IB(cT1c, cN0, cM0, G3, ER-, [place]-, HER2-) - Signed by Eliza Figueroa MD on 01/05/2022 Pathologic stage from 12/14/2021: pT1c(5), pN0(sn), cM0, GX, ER-, AZ-, HER2- - Signed by Eliza Figueroa MD on 01/05/2022 Overview (11/24/2021): Added automatically from request for surgery [id number] Current Treatment and Therapy Plans (ONC) MED ONC OUTPATIENT ELECTROLYTE REPLACEMENT PROTOCOL* Plan Start Date: 01/19/2022 Plan Provider:Eliza Figueroa MD Linked Problems Malignant neoplasm of lower- outer quadrant of left breast of female, estrogen receptor negative Treatment Medications No medications scheduled. Past Treatment and Therapy Plans Oncology Treatment Plan Name Start Date Discontinue Date Treatment Medications Discontinue Reason Plan Provider Cycles CARBOplatin / PACLitaxel Every 28 Days 2 10/27/2022 CARBOplatin (Paraplatin) IVPB (by AUC: GOG-COCKCROFT GAULT)PACLitax el (Taxol) IVPB 500 mL Therapy Complete Eliza Figueroa MD 4 of 4 cycles started
--- OUTSIDE RECORDS SUMMARY | 2024-11-09 13:08 | XMS_ITS | Encounter Summary ---
Author Organization [facility] Address [address] [place] [address] Care Team Providers Care Change Over Name Role Phone Kasey Goncalves APRN Primary Care Provider [phone] Eliza Figueroa MD Unavailable [phone] Encounter Details Date Type Department Care Team (Late st Contact Info) Description 11/04/2021 Community [facility] [address] [place] [address] Kasey Goncalves, AERONAUTICAL RESEARCH ENGINEER [address] [place] [address] Invasive ductal carcinoma of breast, female, left (CMS/HCC) (Primary Dx) Social History Tobacco Use Types Packs/Day Years [...] PM EDT Appointment [facility] [address] [address] 11/19/2024 3:00 PM EDT Office Visit [facility] [address] [place] [address] Eliza Figueroa MD [address] [facility] [address] [place] [address] documented as of this encounter Visit Diagnoses Diagnosis Invasive ductal carcinoma of breast, female, left- Primary documented in this encounter Care Teams Change Over Relationship Specialty Start Date End Date Kasey Goncalves APRN [address] [facility] [address] [facility] [address] [place] [address] PCP - General 10/16/21 Eliza Figueroa MD [address] [facility] [address] [place] [address] Consulting Physician Hematology and Oncology 01/19/22 documented as of this encounter
--- NOTE | 2024-11-09 14:28 | CT_ITS ---
FINAL REPORT TECHNIQUE: Axial CT without IV contrast administration using low dose protocol. This study was performed with techniques to keep radiation doses as low as reasonably achievable, (ALARA). Individualized dose reduction techniques using automated exposure control or adjustment of mA and/or kV according to the patient's size were employed. CLINICAL HISTORY: SCREENING Smoker 1.5 ppd x 40 years, 60 pack year history. COMPARISON: 01/26/2023 FINDINGS: CT CHEST LOW DOSE SCREENING DOSE: CTDI vol: 2.90 mGy, DLP: 108.12 mGy*cm There are stable appearing 3 mm nodules in the right lower lobe on image 57 and in the right middle lobe on image 51 of series 3. Granulomas are strongly favored. There is a 2 mm left upper lobe nodule on image 39, which is unchanged. There is no adenopathy or effusion. IMPRESSION: Stable benign-appearing lung nodules. LUNG RADS CATEGORY 2 RECOMMENDATION: 12 month LDCT follow up Reviewed, Interpreted and Dictated by Mathew Rey MD Transcribed by Latonia Agudelo Authenticated and [facility]
[2024-11-09] MEDS: ALBUTEROL 0.083% 2.5 MG/3 ML NEB IH (14:51)
--- NOTE | 2024-11-09 14:51 | PC.NURSE ---
PFT completed without incident, Albuterol 0.083% given via HHN, per written protocol, Pt tolerated tx well.
== END 2024-11-09 23:59 | disposition home or self-care (01) ==
LOC: RT 13:06
PROVIDERS: PCP Nurse Practitioner Family; Visit Provider Nurse Practitioner Family
DX: R91.8 Other nonspecific abnormal finding of lung field (principal); R06.02 Shortness of breath; Z12.2 Encounter for screening for malignant neoplasm of respiratory organs; Z87.891 Personal history of nicotine dependence
CPT/HCPCS: 71271; 94060; 94726; 94729